=== PATIENT | male | born 1935 | race Caucasian/White ===

== ENCOUNTER 2017-07-29 09:16 | Inpatient (IN) | payer OTHER ==
--- NOTE | 2017-07-29 09:34 | PDOC ---
History of Present Illness - General Chief Complaint: Weakness Stated Complaint: WEAKNESS Time Seen by Provider: 07/29/17 09:23 History Source: Patient - History of Present Illness Initial Comments: 07/29/17 10:56 Patient is an 82 y.o. male with a PMH of HTN, DLD, PVD (h/o - RLE ulcer in 2014 ) who presents to our ED c/o 3 days of productive (whitish sputum) cough, subjective fever and sore throat. Patient denies any associated nausea/ vomiting as well as chest pain or dyspnea. Patient notes he is able to perform his ADL's however reports generalized malaise and decreased PO intake. NKDA Surgical: denies PMD: Dr. Yousif Mckeon Past History - Past Medical History Allergies/Adverse Reactions: Allergies Allergy/AdvReac Type Severity Reaction Status Date / Time No Known Allergies Allergy Verified 07/29/17 09:19 Home Medications: Ambulatory Orders Amlodipine Besylate [Norvasc -] 10 mg PO DAILY #0 tablet 11/19/11 Aspirin [Acetyl Salicylic Acid] 81 mg PO DAILY #0 tab.chew 11/19/11 Clopidogrel Bisulfate [Plavix -] 75 mg PO DAILY #0 tablet 11/19/11 Ferrous Sulfate [Feosol] 325 mg PO DAILY #0 ud 11/19/11 Folic Acid 1 mg PO DAILY #0 tablet 11/19/11 Multivitamins [Multivit ([facility] Formul[facility])] 1 each PO DAILY #0 tab 11/19/11 Atorvastatin Ca [Lipitor] 10 mg PO HS 07/29/17 Cetirizine HCl 10 mg PO 07/29/17 Docusate Sodium [Colace -] 200 mg PO DAILY 07/29/17 Famotidine [Pepcid] 20 mg PO DAILY 07/29/17 Cardiac Disorders: Yes HTN: Yes - Surgical History Cardiac Surgery: Yes (Bypass) Orthopedic Surgery: Yes (Right Knee, Arm & shoulder) - Immunization History Td Vaccination: No TDAP Vaccination: No Immunization Up to Date: No - Suicide/Smoking/Psychosocial Hx Smoking Status: Yes Smoking History: Current every day smoker Years of Tobacco Use: 63 Have you smoked in the past 12 months: Yes Number of Cigarettes Smoked Daily: 5 'Breaking Loose' booklet given: 11/10/11 Hx Alcohol Use: No Drug/Substance Use Hx: No Substance Use Type: None Hx Substance Use Treatment: No Review of Systems - Review of Systems Constitutional: Yes: Fever, Weakness. No: Chills, Unexplained wgt Loss Respiratory: Yes: Cough, Shortness of Breath Cardiac (ROS): No: Chest Pain ABD/GI: Yes: Poor Appetite. No: Constipated, Diarrhea, Nausea, Vomiting, Abdominal cramping : No: Burning, Dysuria *Physical Exam - Physical Exam General Appearance: Yes: Nourished, Appropriately Dressed HEENT: positive: Tonsillar Exudate. negative: TM Bulging, TM Dull, TM Erythema Neck: positive: Supple Respiratory/Chest: positive: Lungs Clear Cardiovascular: positive: S1, S2 Gastrointestinal/Abdominal: positive: Normal Bowel Sounds, Soft Musculoskeletal: negative: CVA Tenderness (R), CVA Tenderness (L) Extremity: positive: Normal Capillary Refill, Normal Inspection Integumentary: positive: Normal Color, Dry, Warm Neurologic: positive: Fully Oriented, Alert ED Treatment Course - LABORATORY CBC & Chemistry Diagram: 07/30/17 08:00 07/30/17 12:07 Medical Decision Making - Medical Decision Making 07/29/17 12:23 Patient is an 82 y.o. male who presents with malaise, productive cough and subjective fever of three days duration. As patient is hypoxic will initiate adult sepsis protocol. Initial clinical suspicion for strep pharyngitis ( exudates on PE) vs. pneumonia vs. influenza. Tylenol for pain control + gentle hydration. Reassess. 07/29/17 12:41 CXR shows no infiltrate/consolidation some possible pulmonary vascular congestion. Na 121 - may account for patient's generalized malaise. Leukocytosis (14.9). Will admit for electrolyte derangement and hold PO and IV fluids. Patient resting comfortably. Admitted to inpatient medicine under the care of Dr. Terry. Will continue to monitor while in ED. *DC/Admit/Observation/Transfer Diagnosis at time of Disposition: Hyponatremia - Discharge Dispostion Condition at time of disposition: Fair Admit: Yes - Referrals - Patient Instructions - Post Discharge Activity
[2017-07-29 10:15] LABS: HEMATOCRIT 41.1 % (35.4-49); HEMOGLOBIN 13.8 GM/dL (11.7-16.9); MCHC 33.5 g/dl (32.0-35.9); MEAN CELL VOLUME 89.5 fl (80-96); RBC 4.59 M/mm3 (4.00-5.60); RDW 13.1 % (11.9-15.9); WHITE BLOOD COUNT 14.9 K/mm3 (4.0-10.0)
[2017-07-29 10:30] LABS: ALBUMIN 2.3 g/dl (3.4-5.0); ANION GAP 11 (8-16); BILIRUBIN,TOTAL 0.4 mg/dL (0.2-1.0); BLOOD UREA NITROGEN 16 mg/dL (7-18); CALCIUM 7.5 mg/dL (8.5-10.1); CHLORIDE 83 mmol/L (98-107); CO2 27 mmol/L (21-32); CREATININE 0.7 mg/dL (0.7-1.3); GLUCOSE,RANDOM 103 mg/dL (74-106); POTASSIUM 4.1 mmol/L (3.5-5.1); SGOT/AST 25 U/L (15-37); SGPT/ALT 28 U/L (12-78); TOT PROT 5.7 g/dl (6.4-8.2)
[2017-07-29 10:33] LABS: ALK PHOS 80 U/L (45-117)
[2017-07-29] MEDS ORDERED: SODIUM CHLORIDE 0.9% 1000 ML INFUS.BAG IV ONE (10:35)
[2017-07-29 10:36] LABS: SODIUM 121 mmol/L (136-145)
--- NOTE | 2017-07-29 10:45 | PDOC ---
Attending Attestation - HPI HPI: 07/29/17 11:27 The patient is a 82 year old male with a significant PMH of hyperlipidemia and hypertension who presents to the emergency department with generalized malaise, body aches, cough and sore throat that began approximately 5 day ago. The patient states he has been unable to get up and ambulate secondary to his generalized malaise. The patient reports a heavy sensation in his chest and a cough productive of white sputum. The patient states he lives at home alone. The patient denies any sick contact. The patient denies chest pain, shortness of breath, headache and dizziness. Denies fever, chills, nausea, vomit, diarrhea and constipation. Denies dysuria, frequency, urgency and hematuria. Allergies: NKA Past surgical history: None reported. Social history: Former smoker. No reported alcohol or drug use. PCP: Dr. Mckeon - Physicial Exam PE: 07/29/17 11:27 GENERAL: (+) Generalized malaise. Awake, alert, and fully oriented. HEAD: No signs of trauma EYES: PERRLA, EOMI, sclera anicteric, conjunctiva clear ENT: (+) Dry mucous membranes. Auricles normal inspection, hearing grossly normal, nares patent, oropharynx clear without exudates. NECK: Normal ROM, supple, no lymphadenopathy, JVD, or masses LUNGS: Breath sounds equal, clear to auscultation bilaterally. No wheezes, and no crackles HEART: Regular rate and rhythm, normal S1 and S2, no murmurs, rubs or gallops ABDOMEN: Soft, nontender, normoactive bowel sounds. No guarding, no rebound. No masses EXTREMITIES: Normal range of motion, no edema. No clubbing or cyanosis. No cords, erythema, or tenderness NEUROLOGICAL: Cranial nerves II through XII grossly intact. Normal speech, normal gait SKIN: Warm, Dry, normal turgor, no rashes or lesions noted. <Noelle Lynn - Last Filed: 07/29/17 11:27> - Resident Resident Name: Catrachita Degroot - ED Attending Attestation I have performed the following: I have examined & evaluated the patient, The case was reviewed & discussed with the resident, I agree w/resident's findings & plan, Exceptions are as noted - Medical Decision Making 07/29/17 10:43 A portion of this note was written by my scribe, under my supervision. Vital Signs Temp Pulse Resp BP Pulse Ox 98.6 F 71 18 178/76 95 07/29/17 09:16 07/29/17 09:16 07/29/17 09:16 07/29/17 09:16 07/29/17 10:12 82-year-old male with history of hypertension, hyperlipidemia, peripheral vascular disease presents with 5 days of general malaise, body aches, cough and sore throat. Patient reports that he's been feeling general malaise and really not able to get up and walk around. He's been reporting some chest heavy sensation and offing with whitish productive sputum. Adult sepsis protocol initiated. Differential includes influenza, pneumonia, pharyngitis, bacteremia. Patient is noted to be hypoxic to 92% concerning for potentially pneumonia. Patient ultimately be admitted to the hospital for further evaluation and management. 07/29/17 11:10 CBC, BMP 07/29/17 09:55 CMP Sodium 121 mmol/L (136-145) L* D 07/29/17 09:55 Potassium 4.1 mmol/L (3.5-5.1) 07/29/17 09:55 Chloride 83 mmol/L (98-107) L D 07/29/17 09:55 Carbon Dioxide 27 mmol/L (21-32) 07/29/17 09:55 Anion Gap 11 (8-16) 07/29/17 09:55 BUN 16 mg/dL (7-18) 07/29/17 09:55 Creatinine 0.7 mg/dL (0.7-1.3) 07/29/17 09:55 Creat Clearance w eGFR > 60 (>60) 07/29/17 09:55 Random Glucose 103 mg/dL (74-106) D 07/29/17 09:55 Calcium 7.5 mg/dL (8.5-10.1) L 07/29/17 09:55 Total Bilirubin 0.4 mg/dL (0.2-1.0) 07/29/17 09:55 AST 25 U/L (15-37) D 07/29/17 09:55 ALT 28 U/L (12-78) D 07/29/17 09:55 Alkaline Phosphatase 80 U/L (45-117) D 07/29/17 09:55 Troponin I 0.02 ng/ml (0.00-0.05) 07/29/17 09:55 Total Protein 5.7 g/dl (6.4-8.2) L 07/29/17 09:55 Albumin 2.3 g/dl (3.4-5.0) L D 07/29/17 09:55 Chest xray reviewed. No acute findings. Influenza and Rapid strep negative. However, pt clinically appears to have PNA. Will treat with antibiotics And also with hyponatremia. Will trial gentle IVF and reassess. Admit. <Minh Cates - Last Filed: 07/29/17 12:40> Heart Score/ECG Review #1 ECG reviewed & interpreted by me at: 12:40 07/29/17 12:39 NSR 71, no std/, morales, left axis deviation, QTC 460 msec. <Minh Cates - Last Filed: 07/29/17 12:40>
[2017-07-29] MEDS ORDERED: CEFTRIAXONE 1 GM in DEXTROSE 5%-WATER - 50 ML IVPB ONE (10:54)
[2017-07-29] MEDS ORDERED: CEFTRIAXONE 1 GM/50 ML BAG ONE (10:58)
[2017-07-29 10:59] LABS: VENOUS PH 7.4 (7.32-7.42); VENOUS PO2 29.5 mmHg (28-48)
[2017-07-29 11:16] LABS: INR 0.93 (0.82-1.09); PROTHROMBIN TIME (PATIENT) 10.5 SEC (9.98-11.88)
[2017-07-29 11:17] LABS: ALBUMIN 2.2 g/dl (3.4-5.0); ANION GAP 9 (8-16); BILIRUBIN,TOTAL 0.4 mg/dL (0.2-1.0); BLOOD UREA NITROGEN 16 mg/dL (7-18); CALCIUM 7.4 mg/dL (8.5-10.1); CHLORIDE 85 mmol/L (98-107); CO2 27 mmol/L (21-32); CREATININE 0.6 mg/dL (0.7-1.3); GLUCOSE,RANDOM 101 mg/dL (74-106); POTASSIUM 4.1 mmol/L (3.5-5.1); SGOT/AST 23 U/L (15-37); SGPT/ALT 27 U/L (12-78); TOT PROT 5.4 g/dl (6.4-8.2)
[2017-07-29 11:18] LABS: ALK PHOS 79 U/L (45-117)
[2017-07-29 11:19] LABS: ACTIVATED PTT 32.6 SECONDS (26.9-34.4); SODIUM 121 mmol/L (136-145)
--- NOTE | 2017-07-29 12:20 | CONSULT ---
Consult Consult Specialty:: Nephrology Referred by:: Dr. Cates Reason for Consultation:: Severe Hyponatremia - History of Present Illness Chief Complaint: I dont feel good History of Present Illness: 82M PMH of hyperlipidemia and hypertension who presents to the emergency department with about a 1 week history of generalized malaise, body aches, cough and sore throat.The patient states he has been having a cough with white sputum production. The patient denies any sick contact. In the ED Lab notable for severe hyponatremia sodium is 121. The patient denies chest pain, shortness of breath, headache and dizziness. Denies fever, chills, nausea, vomit, diarrhea and constipation. Denies dysuria, frequency, urgency and hematuria. He does endorse some chest heaviness. - History Source History Provided By: Patient, Medical Record Limitations to Obtaining History: Clinical Condition - Past Medical History Cardio/Vascular: Yes: HTN, Hyperlipdemia Gastrointestinal: Yes: GERD Heme/Onc: Yes: Anemia Additional Medical History: periheral vascular disease - Past Surgical History Additional Surgical History: RLE bypass. Orthopedic surgeries - Alcohol/Substance Use Hx Alcohol Use: No - Smoking History Smoking history: Former smoker Have you smoked in the past 12 months: Yes Aproximately how many cigarettes per day: 5 If you are a former smoker, when did you quit?: 07/2017 Home Medications - Allergies Allergies/Adverse Reactions: Allergies Allergy/AdvReac Type Severity Reaction Status Date / Time No Known Allergies Allergy Verified 07/29/17 09:19 - Home Medications Home Medications: Ambulatory Orders Amlodipine Besylate [Norvasc -] 10 mg PO DAILY #0 tablet 11/19/11 Aspirin [Acetyl Salicylic Acid] 81 mg PO DAILY #0 tab.chew 11/19/11 Clopidogrel Bisulfate [Plavix -] 75 mg PO DAILY #0 tablet 11/19/11 Ferrous Sulfate [Feosol] 325 mg PO DAILY #0 ud 11/19/11 Folic Acid 1 mg PO DAILY #0 tablet 11/19/11 Multivitamins [Multivit ([facility] Formul[facility])] 1 each PO DAILY #0 tab 11/19/11 Atorvastatin Ca [Lipitor] 10 mg PO HS 07/29/17 Cetirizine HCl 10 mg PO 07/29/17 Docusate Sodium [Colace -] 200 mg PO DAILY 07/29/17 Famotidine [Pepcid] 20 mg PO DAILY 07/29/17 Review of Systems - Review of Systems Constitutional: reports: Loss of Appetite, Malaise, Weakness Eyes: reports: No Symptoms HENT: reports: No Symptoms Neck: reports: No Symptoms Cardiovascular: reports: Other (chesdt heaviness) Respiratory: reports: Cough (productive) Gastrointestinal: reports: Other (suprapubic pain) Breasts: reports: No Symptoms Reported Musculoskeletal: reports: No Symptoms Integumentary: reports: No Symptoms Neurological: reports: Weakness Physical Exam Vital Signs: Vital Signs Temperature 98.6 F 07/29/17 09:16 Pulse Rate 71 07/29/17 09:16 Respiratory Rate 18 07/29/17 09:16 Blood Pressure 178/76 07/29/17 09:16 O2 Sat by Pulse Oximetry (%) 95 07/29/17 10:12 Constitutional: Yes: No Distress, Calm Eyes: Yes: Conjunctiva Clear HENT: Yes: Atraumatic, Other (dry mucous membranes) Neck: Yes: Supple Cardiovascular: Yes: Regular Rate and Rhythm Respiratory: Yes: CTA Bilaterally Gastrointestinal: Yes: WNL, Soft Renal/: Yes: Other (mild suprapubic tenderness) Edema: No Neurological: Yes: Alert Labs: CBC, BMP 07/29/17 09:55 07/29/17 10:25 Imaging - Results Chest X-ray: Report Reviewed, Image Reviewed Assessment/Plan 82M with multiple medical problems presents to the ED with general malaise and weakness found to have severe hyponatremia on labs. Problem List: Severe symptomatic hyponatremia Leukocytosis HTN HLD PVD GERD Iron deficiency anemia possible pneumonia Plan: Admit to medicine given 500ml NS Bolus Repeat BMP now check TSH Check urine OSM Check serum OSM Check urine electrolytes check urine creatinine check cortisol AM Check Urinalysis Will start fluids based on labs check urine antigens for legionella given hyponatremia Trend BMP q4h discussed with hospitalist discussed with ED resident and attending Case discussed with attending Dr Lacey
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
[2017-07-29] MEDS ORDERED: amLODIPine BESYLATE 5 MG TABLET (FP) ONE (13:03)
[2017-07-29] MEDS: amLODIPine BESYLATE 10 MG TABLET (FP) PO SCH (13:06)
[2017-07-29 13:35] LABS: ALBUMIN 2.1 g/dl (3.4-5.0); ANION GAP 10 (8-16); BILIRUBIN,TOTAL 0.3 mg/dL (0.2-1.0); BLOOD UREA NITROGEN 16 mg/dL (7-18); CALCIUM 7.3 mg/dL (8.5-10.1); CHLORIDE 84 mmol/L (98-107); CO2 27 mmol/L (21-32); CREATININE 0.6 mg/dL (0.7-1.3); GLUCOSE,RANDOM 97 mg/dL (74-106); SGOT/AST 21 U/L (15-37); SGPT/ALT 25 U/L (12-78); TOT PROT 5.1 g/dl (6.4-8.2)
[2017-07-29 13:43] LABS: ALK PHOS 73 U/L (45-117)
[2017-07-29 13:44] LABS: SODIUM 121 mmol/L (136-145)
[2017-07-29 14:55] LABS: ANISOCYTOSIS 0; MACROCYTOSIS 0; PLATELET ESTIMATE INCREASED
--- NOTE | 2017-07-29 14:58 | EKG ---
Test Reason : Blood Pressure : / mmHG Vent. Rate : 071 BPM Atrial Rate : 071 BPM P-R Int : 168 ms QRS Dur : 110 ms QT Int : 424 ms P-R-T Axes : -05 -22 031 degrees QTc Int : 460 ms NORMAL SINUS RHYTHM NORMAL ECG WHEN COMPARED WITH ECG OF 10-NOV-2011 10:42, QRS DURATION HAS INCREASED NONSPECIFIC T WAVE ABNORMALITY NOW EVIDENT IN LATERAL LEADS QT HAS LENGTHENED Confirmed by NICK MACIEL, [place] ([id number]) on 07/29/2017 2:58:00 PM Referred By: Confirmed By:MO ROMERO MD
[2017-07-29 15:09] LABS: OSMOLALITY,SERUM 250 mosm/kg (278-305)
[2017-07-29 15:23] LABS: PLATELET COUNT 539 K/MM3 (134-434)
[2017-07-29 15:59] VITALS: BMI 23.6
--- NOTE | 2017-07-29 16:06 | PN ---
Teaching Attending Note Name of Resident: Uzair Wallace (Nephrology) ATTENDING PHYSICIAN STATEMENT I saw and evaluated the patient. I reviewed the resident's note and discussed the case with the resident. I agree with the resident's findings and plan as documented. Nephrology Pt is an 82 year old male with pmhx of HTN, PVC, arthritis, anemia and CAD who presents to the ER with cough and weakness. He says that it began about 5 days ago. He also complains of decreased appetite. He has not eaten solid food in about 5 days. He has tried to drink fluids but has not had appetite. He denies diarrhea or vomiting. He was found to be hyponatremic at 121. He denies history of hyponatremia. He lived in [facility]. He complains of generalized fatigue and weakness. He denies chest pain or palpitations. He denies change in vision. pmhx cad htn pvc arthritis pshx ulcer debridement nkda social hx denies family hx denies ros fatigue Current Active Problems Anemia (Acute) CAD (coronary artery disease) (Acute) Decrease in appetite (Acute) HLD (hyperlipidemia) (Acute) HTN (hypertension) (Acute) Hyponatremia (Acute) Leukocytosis (Acute) SOB (shortness of breath) (Acute) Weakness (Acute) Current Medications Generic Name Dose Route Start Last Admin Trade Name Freq PRN Reason Stop Dose Admin Amlodipine Besylate 10 mg 07/29/17 12:30 07/29/17 13:06 Norvasc - PO 10 mg DAILY NARINDER Administration Atorvastatin Calcium 10 mg 07/29/17 22:00 Lipitor - PO HS NARINDER Clopidogrel Bisulfate 75 mg 07/30/17 10:00 Plavix - PO DAILY NARINDER Enoxaparin Sodium 40 mg 07/30/17 10:00 Lovenox - SQ DAILY NARINDER Sodium Chloride 1,000 mls @ 100 mls/hr 07/29/17 14:00 Normal Saline - IV ASDIR NARINDER Last Vital Signs Temp Pulse Resp BP Pulse Ox 97.8 F 73 18 167/57 96 07/29/17 12:18 07/29/17 13:56 07/29/17 13:56 07/29/17 13:56 07/29/17 13:56 Laboratory Tests 07/29/17 07/29/17 07/29/17 09:55 09:55 10:25 WBC 14.9 H D Hgb 13.8 D Plt Count 539 H D VBG pH POC VBG pCO2 POC VBG pO2 Sodium 121 L* D 121 L* BUN 16 Creatinine 0.7 Serum Osmolality 07/29/17 07/29/17 10:50 12:55 WBC Hgb Plt Count VBG pH 7.40 POC VBG pCO2 48.0 POC VBG pO2 29.5 Sodium BUN Creatinine Serum Osmolality 250 L cardio s1s2 reg pulm scattered wheeze GI soft ext neg edema neuro awake and alert skin decreased turgor circ pos pulses heent dry mucous membranes psych calm and cooperative Impression 1. hyponatremia - hypovolemic 2. Leukocytosis 3. HTN 4. HLD 5. PVD 6. GERD 7. anemia 8. pna vs influenza Plan - start normal saline and monitor sodium - repeat levels in 4 hours - check urine osm - check urine sodium - send tsh and cortisol - pt appears clinically dehydrated as well - discussed with ER team - discussed with medical team at bedside - pt is at risk to fall, keep on bedrest until sodium is stabilized
[2017-07-29 19:39] LABS: URINE APPEARANCE CLEAR; URINE BILIRUBIN NEGATIVE (NEGATIVE); URINE BLOOD 2+ (NEGATIVE); URINE COLOR YELLOW; URINE GLUCOSE (UA) NEGATIVE (NEGATIVE); URINE KETONE TRACE (NEGATIVE); URINE LEUK ESTERASE NEGATIVE (NEGATIVE); URINE NITRITE NEGATIVE (NEGATIVE); URINE UROBILINOGEN 4.0 E.U/dl mg/dL (0.2-1.0)
[2017-07-29 19:40] LABS: URINE PROTEIN 3+ (NEGATIVE)
[2017-07-29 19:44] LABS: EPI CELLS RARE /HPF (FEW); URINE MUCUS RARE
[2017-07-29 21:18] LABS: ANION GAP 8 (8-16); BLOOD UREA NITROGEN 13 mg/dL (7-18); CALCIUM 7.2 mg/dL (8.5-10.1); CHLORIDE 88 mmol/L (98-107); CO2 27 mmol/L (21-32); CREATININE 0.5 mg/dL (0.7-1.3); GLUCOSE,RANDOM 72 mg/dL (74-106); POTASSIUM 4.1 mmol/L (3.5-5.1)
[2017-07-29 21:25] LABS: SODIUM 123 mmol/L (136-145)
[2017-07-29] MEDS: ATORVASTATIN CA 10 MG TABLET (FP) PO SCH (21:42)
[2017-07-30] MEDS: SODIUM CHLORIDE 1,000 ML IV SCH (02:28)
[2017-07-30 08:45] LABS: BASO % 0.3 % (0-2.0); EOS % 0.5 % (0-4.5); HEMATOCRIT 38.7 % (35.4-49); HEMOGLOBIN 13.1 GM/dL (11.7-16.9); LYMPH % 10.3 % (8-40); MCH 30.5 pg (25.7-33.7); MEAN CELL VOLUME 89.9 fl (80-96); MEAN PLT VOLUME 6.7 fl (7.5-11.1); MONO % 7.7 % (3.8-10.2); NEUT % 81.2 % (42.8-82.8); PLATELET COUNT 456 K/MM3 (134-434); WHITE BLOOD COUNT 13.1 K/mm3 (4.0-10.0)
[2017-07-30 09:29] LABS: MAGNESIUM 1.9 mg/dL (1.8-2.4); PHOSPHOROUS 2.5 mg/dL (2.5-4.9)
[2017-07-30] MEDS: amLODIPine BESYLATE 10 MG TABLET (FP) PO SCH (09:39)
[2017-07-30] MEDS: CLOPIDOGREL BISULFATE 75 MG TABLET (FP) PO SCH (09:39)
[2017-07-30] MEDS: ENOXAPARIN NA (PORCINE) 40 MG/0.4 ML DISP.SYRIN SQ SCH (09:39)
[2017-07-30] MEDS: CEFTRIAXONE 1 G/50 ML PREMIX 50 ML IVPB SCH (09:39)
--- NOTE | 2017-07-30 11:51 | PN ---
Progress Note, Physician History of Present Illness: patient seen and examined at bedside urine osm not done - Current Medication List Current Medications: Active Medications Amlodipine Besylate (Norvasc -) 10 mg PO DAILY [facility] Last Admin: 07/30/17 09:39 Dose: 10 mg Atorvastatin Calcium (Lipitor -) 10 mg PO HS [facility] Last Admin: 07/29/17 21:42 Dose: 10 mg Clopidogrel Bisulfate (Plavix -) 75 mg PO DAILY [facility] Last Admin: 07/30/17 09:39 Dose: 75 mg Enoxaparin Sodium (Lovenox -) 40 mg SQ DAILY [facility] Last Admin: 07/30/17 09:39 Dose: 40 mg Sodium Chloride (Normal Saline -) 1,000 mls @ 100 mls/hr IV ASDIR [facility] Last Admin: 07/30/17 02:28 Dose: 100 mls/hr CEFTRIAXONE 1 G/50 ML PREMIX (Ceftriaxone 1 Gm-D5w Bag) 50 mls @ 100 mls/hr IVPB DAILY [facility] Last Admin: 07/30/17 09:39 Dose: 100 mls/hr - Objective Vital Signs: Vital Signs Temperature 98.1 F 07/30/17 09:43 Pulse Rate 77 07/30/17 09:43 Respiratory Rate 20 07/30/17 09:43 Blood Pressure 156/68 07/30/17 09:43 O2 Sat by Pulse Oximetry (%) 96 07/29/17 21:00 Constitutional: Yes: No Distress, Calm Eyes: Yes: Conjunctiva Clear HENT: Yes: Atraumatic, Other (dry mucous membranes) Neck: Yes: Supple Cardiovascular: Yes: Regular Rate and Rhythm Respiratory: Yes: CTA Bilaterally Gastrointestinal: Yes: WNL, Soft Renal/: Yes: Soft non tender non distended Edema: No Neurological: Yes: AAOx3 Labs: CBC, BMP 07/30/17 08:00 07/29/17 20:00 INR, PTT INR 0.93 (0.82-1.09) 07/29/17 10:25 Assessment/Plan 82M with multiple medical problems presents to the ED with general malaise and weakness found to have severe hyponatremia on labs. Problem List: Severe symptomatic hyponatremia Leukocytosis HTN HLD PVD GERD Iron deficiency anemia possible pneumonia Plan: continue to trend BMP TSH WNL Check urine OSM serum OSM Low urine electrolytes reviewed check urine creatinine cortisol AM -pending Urinalysis reviewed continue NS @ 100ml/hr check urine antigens for legionella given hyponatremia Trend BMP q4h Case discussed with attending Dr Lacey
[2017-07-30 12:56] LABS: ALBUMIN 1.7 g/dl (3.4-5.0); ANION GAP 10 (8-16); BILIRUBIN,TOTAL 0.2 mg/dL (0.2-1.0); BLOOD UREA NITROGEN 13 mg/dL (7-18); CALCIUM 7.1 mg/dL (8.5-10.1); CHLORIDE 91 mmol/L (98-107); CO2 25 mmol/L (21-32); CREATININE 0.5 mg/dL (0.7-1.3); GLUCOSE,RANDOM 80 mg/dL (74-106); POTASSIUM 3.9 mmol/L (3.5-5.1); SGOT/AST 21 U/L (15-37); SGPT/ALT 22 U/L (12-78); SODIUM 126 mmol/L (136-145); TOT PROT 4.6 g/dl (6.4-8.2)
[2017-07-30 12:57] LABS: ALK PHOS 72 U/L (45-117)
--- NOTE | 2017-07-30 15:46 | PN ---
Progress Note (short form) - Note Progress Note: Subjective: The patient was seen and examined at the bedside, he has no complaints at this time. Current Medications Generic Name Dose Route Start Last Admin Trade Name Bailey PRN Reason Stop Dose Admin Amlodipine Besylate 10 mg 07/29/17 12:30 07/30/17 09:39 Norvasc - PO 10 mg DAILY NARINDER Administration Atorvastatin Calcium 10 mg 07/29/17 22:00 07/29/17 21:42 Lipitor - PO 10 mg HS NARINDER Administration Clopidogrel Bisulfate 75 mg 07/30/17 10:00 07/30/17 09:39 Plavix - PO 75 mg DAILY NARINDER Administration Enoxaparin Sodium 40 mg 07/30/17 10:00 07/30/17 09:39 Lovenox - SQ 40 mg DAILY NARINDER Administration Sodium Chloride 1,000 mls @ 100 mls/hr 07/29/17 14:00 07/30/17 02:28 Normal Saline - IV 100 mls/hr ASDIR NARINDER Administration CEFTRIAXONE 1 G/50 ML PREMIX 50 mls @ 100 mls/hr 07/30/17 10:00 07/30/17 09: 39 Ceftriaxone 1 Gm-D5w Bag IVPB 100 mls/hr DAILY NARINDER Administration Objective: Vital Signs Period Temp Pulse Resp BP Sys/Macias Pulse Ox Last 24 Hr 98.1 F-98.9 F 72-90 18-20 136-156/61-68 96-96 Physical Exam: General: NAD Lungs: CTA bilaterally Heart: RRR, S1S2 Abd: Soft, non-tender, non-distended. Normoactive bowel sounds Ext: Warm, well-perfused. 2+ DP/PT bilaterally CBCD WBC 13.1 K/mm3 (4.0-10.0) H 07/30/17 08:00 RBC 4.30 M/mm3 (4.00-5.60) 07/30/17 08:00 Hgb 13.1 GM/dL (11.7-16.9) 07/30/17 08:00 Hct 38.7 % (35.4-49) 07/30/17 08:00 MCV 89.9 fl (80-96) 07/30/17 08:00 MCHC 34.0 g/dl (32.0-35.9) 07/30/17 08:00 RDW 13.0 % (11.9-15.9) 07/30/17 08:00 Plt Count 456 K/MM3 (134-434) H 07/30/17 08:00 MPV 6.7 fl (7.5-11.1) L 07/30/17 08:00 CMP Sodium 126 mmol/L (136-145) L 07/30/17 12:07 Potassium 3.9 mmol/L (3.5-5.1) 07/30/17 12:07 Chloride 91 mmol/L (98-107) L 07/30/17 12:07 Carbon Dioxide 25 mmol/L (21-32) 07/30/17 12:07 Anion Gap 10 (8-16) 07/30/17 12:07 BUN 13 mg/dL (7-18) 07/30/17 12:07 Creatinine 0.5 mg/dL (0.7-1.3) L 07/30/17 12:07 Creat Clearance w eGFR > 60 (>60) 07/30/17 12:07 Random Glucose 80 mg/dL (74-106) 07/30/17 12:07 Calcium 7.1 mg/dL (8.5-10.1) L 07/30/17 12:07 Total Bilirubin 0.2 mg/dL (0.2-1.0) D 07/30/17 12:07 AST 21 U/L (15-37) 07/30/17 12:07 ALT 22 U/L (12-78) 07/30/17 12:07 Alkaline Phosphatase 72 U/L (45-117) 07/30/17 12:07 Total Protein 4.6 g/dl (6.4-8.2) L 07/30/17 12:07 Albumin 1.7 g/dl (3.4-5.0) L 07/30/17 12:07 CARDIAC ENZYMES Troponin I 0.02 ng/ml (0.00-0.05) 07/29/17 09:55 Microbiology 07/29/17 10:25 Blood - Peripheral Venous Blood Culture - Preliminary NO GROWTH OBTAINED AFTER 24 HOURS, INCUBATION TO CONTINUE FOR 4 DAYS. 07/29/17 10:25 Blood - Peripheral Venous Blood Culture - Preliminary NO GROWTH OBTAINED AFTER 24 HOURS, INCUBATION TO CONTINUE FOR 4 DAYS. 07/29/17 10:12 Throat Throat Culture - Final NO BETA HEMOLYTIC STREPTOCOCCI ISOLATED 07/29/17 10:12 Throat Group A Strep Rapid Antigen - Final 07/29/17 10:12 Nasopharyngeal Swab Influenza Types A,B Antigen (KAREEN) - Final 07/29/17 10:12 Nasopharyngeal Swab - Final Assessment: This is an 82 year old male with PMHx of HTN, hyperlipidemia, anemia , CAD, who presented to the ED with shortness of breath, weakness, cough, decreased appetite x5 days. Plan: 1) Severe hyponatremia: - Likely hypovolemia hyponatremia - BMP q4h - Continue Normal Saline @100ml/hr - Urine studies noted - Appreciate nephrology consult 2) Leukocytosis - Improving - Continue Ceftriaxone/Azithromycin for now - F/u urine legionella Ag - Chest X-ray with no acute pathology - Influenza A&B negative - Throat culture negative 3) CAD - Continue Plavix - Continue Lipitor 4) HTN - Continue Norvasc 5) F/E/N: - Sodium controlled diet - Monitor electrolytes 6) Prophylaxis: - OOB ambulating - Lovenox 40mg sq daily 7) Dispo: - Requires continued inpatient care CODE STATUS: FULL CODE Visit type - Emergency Visit Emergency Visit: Yes ED Registration Date: 07/29/17 Care time: The patient presented to the Emergency Department on the above date and was hospitalized for further evaluation of their emergent condition. - New Patient This patient is new to me today: Yes Date on this admission: 07/30/17 - Critical Care Critical Care patient: No
--- NOTE | 2017-07-30 16:43 | PN ---
Teaching Attending Note Name of Resident: Uzair Wallace (Nephrology) ATTENDING PHYSICIAN STATEMENT I saw and evaluated the patient. I reviewed the resident's note and discussed the case with the resident. I agree with the resident's findings and plan as documented. Nephrology Pt seen and examined at bedside. He is more awake and alert. He denies shortness of breath. He has better appetite today and tolerated lunch. Current Medications Generic Name Dose Route Start Last Admin Trade Name Freq PRN Reason Stop Dose Admin Amlodipine Besylate 10 mg 07/29/17 12:30 07/30/17 09:39 Norvasc - PO 10 mg DAILY NARINDER Administration Atorvastatin Calcium 10 mg 07/29/17 22:00 07/29/17 21:42 Lipitor - PO 10 mg HS NARINDER Administration Clopidogrel Bisulfate 75 mg 07/30/17 10:00 07/30/17 09:39 Plavix - PO 75 mg DAILY NARINDER Administration Enoxaparin Sodium 40 mg 07/30/17 10:00 07/30/17 09:39 Lovenox - SQ 40 mg DAILY NARINDER Administration Sodium Chloride 1,000 mls @ 100 mls/hr 07/29/17 14:00 07/30/17 02:28 Normal Saline - IV 100 mls/hr ASDIR NARINDER Administration CEFTRIAXONE 1 G/50 ML PREMIX 50 mls @ 100 mls/hr 07/30/17 10:00 07/30/17 09: 39 Ceftriaxone 1 Gm-D5w Bag IVPB 100 mls/hr DAILY NARINDER Administration Laboratory Tests 07/29/17 07/30/17 16:20 12:07 Sodium 126 L Potassium 3.9 Ur Random Sodium 32 cardio s1s2 reg pulm bilateral breath sounds GI soft ext neg edema neuro awake and alert skin decreased turgor circ pos pulses psych calm and cooperative Impression 1. hyponatremia - hypovolemic 2. Leukocytosis 3. HTN 4. HLD 5. PVD 6. GERD 7. anemia 8. pna vs influenza Plan - cont with saline - hypovolemic hyponatremia - improving - repeat labs in am - encourage PO intake - workup in progress - hyponatremia likely secondary to dehydration and decreased PO intake - note low urine sodium despite having received saline Dr Lacey
[2017-07-30] MEDS ORDERED: AZITHROMYCIN IVPB 500 MG in DEXTROSE 5%-WATER - 250 ML IVPB ONE (17:30)
[2017-07-30 20:50] LABS: ANION GAP 8 (8-16); BLOOD UREA NITROGEN 13 mg/dL (7-18); CALCIUM 7.2 mg/dL (8.5-10.1); CHLORIDE 92 mmol/L (98-107); CO2 26 mmol/L (21-32); CREATININE 0.6 mg/dL (0.7-1.3); GLUCOSE,RANDOM 154 mg/dL (74-106); POTASSIUM 3.9 mmol/L (3.5-5.1); SODIUM 126 mmol/L (136-145)
[2017-07-30] MEDS: ATORVASTATIN CA 10 MG TABLET (FP) PO SCH (21:20)
[2017-07-30 21:44] LABS: ANION GAP 7 (8-16); BLOOD UREA NITROGEN 13 mg/dL (7-18); CALCIUM 7.1 mg/dL (8.5-10.1); CHLORIDE 92 mmol/L (98-107); CO2 27 mmol/L (21-32); CREATININE 0.6 mg/dL (0.7-1.3); GLUCOSE,RANDOM 159 mg/dL (74-106); POTASSIUM 3.8 mmol/L (3.5-5.1); SODIUM 126 mmol/L (136-145)
[2017-07-31 01:27] LABS: ANION GAP 8 (8-16); BLOOD UREA NITROGEN 10 mg/dL (7-18); CHLORIDE 92 mmol/L (98-107); CO2 26 mmol/L (21-32); CREATININE 0.5 mg/dL (0.7-1.3); GLUCOSE,RANDOM 94 mg/dL (74-106); SODIUM 126 mmol/L (136-145)
[2017-07-31 01:30] LABS: POTASSIUM 3.9 mmol/L (3.5-5.1)
[2017-07-31 05:52] LABS: HEMATOCRIT 36.2 % (35.4-49); HEMOGLOBIN 12.3 GM/dL (11.7-16.9); MCH 30.6 pg (25.7-33.7); MEAN CELL VOLUME 90.1 fl (80-96); MEAN PLT VOLUME 6.8 fl (7.5-11.1); PLATELET COUNT 437 K/MM3 (134-434); RBC 4.02 M/mm3 (4.00-5.60); RDW 13.1 % (11.9-15.9); WHITE BLOOD COUNT 10.3 K/mm3 (4.0-10.0)
[2017-07-31 06:25] LABS: ANION GAP 7 (8-16); BLOOD UREA NITROGEN 9 mg/dL (7-18); CHLORIDE 93 mmol/L (98-107); CO2 27 mmol/L (21-32); CREATININE 0.5 mg/dL (0.7-1.3); GLUCOSE,RANDOM 93 mg/dL (74-106); POTASSIUM 3.8 mmol/L (3.5-5.1); SODIUM 127 mmol/L (136-145)
[2017-07-31 06:30] LABS: CALCIUM 6.9 mg/dL (8.5-10.1)
[2017-07-31] MEDS: CEFTRIAXONE 1 G/50 ML PREMIX 50 ML IVPB SCH (09:19)
[2017-07-31] MEDS: ENOXAPARIN NA (PORCINE) 40 MG/0.4 ML DISP.SYRIN SQ SCH (09:20)
[2017-07-31] MEDS: amLODIPine BESYLATE 10 MG TABLET (FP) PO SCH (09:20)
[2017-07-31] MEDS: CLOPIDOGREL BISULFATE 75 MG TABLET (FP) PO SCH (09:20)
--- NOTE | 2017-07-31 10:40 | PN ---
Progress Note (short form) - Note Progress Note: Subjective: The patient was seen and examined at the bedside, he has no complaints at this time. Current Medications Generic Name Dose Route Start Last Admin Trade Name Bailey PRN Reason Stop Dose Admin Amlodipine Besylate 10 mg 07/29/17 12:30 07/31/17 09:20 Norvasc - PO 10 mg DAILY NARINDER Administration Atorvastatin Calcium 10 mg 07/29/17 22:00 07/30/17 21:20 Lipitor - PO 10 mg HS NARINDER Administration Clopidogrel Bisulfate 75 mg 07/30/17 10:00 07/31/17 09:20 Plavix - PO 75 mg DAILY NARINDER Administration Enoxaparin Sodium 40 mg 07/30/17 10:00 07/31/17 09:20 Lovenox - SQ 40 mg DAILY NARINDER Administration Sodium Chloride 1,000 mls @ 100 mls/hr 07/29/17 14:00 07/30/17 02:28 Normal Saline - IV 100 mls/hr ASDIR NARINDER Administration CEFTRIAXONE 1 G/50 ML PREMIX 50 mls @ 100 mls/hr 07/30/17 10:00 07/31/17 09: 19 Ceftriaxone 1 Gm-D5w Bag IVPB 100 mls/hr DAILY NARINDER Administration Objective: Vital Signs Period Temp Pulse Resp BP Sys/Macias Pulse Ox Last 24 Hr 97.6 F-99.3 F 76-90 20-20 136-154/61-83 96 Physical Exam: General: NAD Lungs: CTA bilaterally Heart: RRR, S1S2 Abd: Soft, non-tender, non-distended. Normoactive bowel sounds Ext: Warm, well-perfused. 2+ DP/PT bilaterally CBCD WBC 10.3 K/mm3 (4.0-10.0) H 07/31/17 05:30 RBC 4.02 M/mm3 (4.00-5.60) 07/31/17 05:30 Hgb 12.3 GM/dL (11.7-16.9) 07/31/17 05:30 Hct 36.2 % (35.4-49) 07/31/17 05:30 MCV 90.1 fl (80-96) 07/31/17 05:30 MCHC 34.0 g/dl (32.0-35.9) 07/31/17 05:30 RDW 13.1 % (11.9-15.9) 07/31/17 05:30 Plt Count 437 K/MM3 (134-434) H 07/31/17 05:30 MPV 6.8 fl (7.5-11.1) L 07/31/17 05:30 CMP Sodium 127 mmol/L (136-145) L 07/31/17 05:30 Potassium 3.8 mmol/L (3.5-5.1) 07/31/17 05:30 Chloride 93 mmol/L (98-107) L 07/31/17 05:30 Carbon Dioxide 27 mmol/L (21-32) 07/31/17 05:30 Anion Gap 7 (8-16) L 07/31/17 05:30 BUN 9 mg/dL (7-18) 07/31/17 05:30 Creatinine 0.5 mg/dL (0.7-1.3) L 07/31/17 05:30 Creat Clearance w eGFR > 60 (>60) 07/30/17 12:07 Random Glucose 93 mg/dL (74-106) 07/31/17 05:30 Calcium 6.9 mg/dL (8.5-10.1) L* 07/31/17 05:30 Total Bilirubin 0.2 mg/dL (0.2-1.0) D 07/30/17 12:07 AST 21 U/L (15-37) 07/30/17 12:07 ALT 22 U/L (12-78) 07/30/17 12:07 Alkaline Phosphatase 72 U/L (45-117) 07/30/17 12:07 Total Protein 4.6 g/dl (6.4-8.2) L 07/30/17 12:07 Albumin 1.7 g/dl (3.4-5.0) L 07/30/17 12:07 CARDIAC ENZYMES Troponin I 0.02 ng/ml (0.00-0.05) 07/29/17 09:55 Microbiology 07/29/17 10:25 Blood - Peripheral Venous Blood Culture - Preliminary NO GROWTH OBTAINED AFTER 24 HOURS, INCUBATION TO CONTINUE FOR 4 DAYS. 07/29/17 10:25 Blood - Peripheral Venous Blood Culture - Preliminary NO GROWTH OBTAINED AFTER 24 HOURS, INCUBATION TO CONTINUE FOR 4 DAYS. 07/29/17 10:12 Throat Throat Culture - Final NO BETA HEMOLYTIC STREPTOCOCCI ISOLATED 07/29/17 10:12 Throat Group A Strep Rapid Antigen - Final 07/29/17 10:12 Nasopharyngeal Swab Influenza Types A,B Antigen (KAREEN) - Final 07/29/17 10:12 Nasopharyngeal Swab - Final Assessment: This is an 82 year old male with PMHx of HTN, hyperlipidemia, anemia , CAD, who presented to the ED with shortness of breath, weakness, cough, decreased appetite x5 days. Plan: 1) Severe hyponatremia: - Continues to improve - Likely hypovolemia hyponatremia - BMP q4h - Continue Normal Saline @100ml/hr - Urine studies noted - Appreciate nephrology consult 2) Leukocytosis - Improving - Continue Ceftriaxone/Azithromycin for now - F/u urine legionella Ag - Chest X-ray with no acute pathology - Influenza A&B negative - Throat culture negative 3) CAD - Continue Plavix - Continue Lipitor 4) HTN - Continue Norvasc 5) F/E/N: - Sodium controlled diet - Monitor electrolytes 6) Prophylaxis: - OOB ambulating - Lovenox 40mg sq daily 7) Dispo: - Requires continued inpatient care CODE STATUS: FULL CODE Visit type - Emergency Visit Emergency Visit: Yes ED Registration Date: 07/29/17 Care time: The patient presented to the Emergency Department on the above date and was hospitalized for further evaluation of their emergent condition. - New Patient This patient is new to me today: No - Critical Care Critical Care patient: No
[2017-07-31] MEDS: SODIUM CHLORIDE 1,000 ML IV SCH (12:12)
[2017-07-31 12:16] LABS: ALBUMIN 1.7 g/dl (3.4-5.0)
--- NOTE | 2017-07-31 12:56 | PN ---
Progress Note (short form) - Note Progress Note: RENAL Pt is awake and alert c/o nausea and inability to swallow solids since yesterday Last Vital Signs Temp Pulse Resp BP Pulse Ox 97.6 F 78 20 144/83 95 07/31/17 09:00 07/31/17 09:00 07/31/17 09:00 07/31/17 09:00 07/31/17 09:00 heent no masses lungs clear cvs s1s2 rr abd soft ext no edema neuro a+ox3 CBC, BMP 07/31/17 05:30 07/31/17 05:30 Current Medications Generic Name Dose Route Start Last Admin Trade Name Freq PRN Reason Stop Dose Admin Amlodipine Besylate 10 mg 07/29/17 12:30 07/31/17 09:20 Norvasc - PO 10 mg DAILY NARINDER Administration Atorvastatin Calcium 10 mg 07/29/17 22:00 07/30/17 21:20 Lipitor - PO 10 mg HS NARINDER Administration Clopidogrel Bisulfate 75 mg 07/30/17 10:00 07/31/17 09:20 Plavix - PO 75 mg DAILY NARINDER Administration Enoxaparin Sodium 40 mg 07/30/17 10:00 07/31/17 09:20 Lovenox - SQ 40 mg DAILY NARINDER Administration Sodium Chloride 1,000 mls @ 100 mls/hr 07/29/17 14:00 07/31/17 12:12 Normal Saline - IV 100 mls/hr ASDIR NARINDER Administration CEFTRIAXONE 1 G/50 ML PREMIX 50 mls @ 100 mls/hr 07/30/17 10:00 07/31/17 09: 19 Ceftriaxone 1 Gm-D5w Bag IVPB 100 mls/hr DAILY NARINDER Administration IMPRESSION hyponatremia has improved with fluids which would suggest a hypovolemic hyponatremia His current nausea may perpetuate hyponatremia Unclear as to why he cant swallow- needs further investigation PLAN replace k which can help raise sodium as well swallowing eval/ CT scan chest/neck, GI eval continue saline for now
[2017-07-31] MEDS: SODIUM CHLORIDE 0.9%/KCL 20 MEQ/1,000 ML INFUS.BAG IV SCH (13:58)
[2017-07-31 17:47] LABS: CHLORIDE 94 mmol/L (98-107); POTASSIUM 3.9 mmol/L (3.5-5.1); SODIUM 126 mmol/L (136-145)
[2017-07-31 18:35] LABS: ANION GAP 8 (8-16); BLOOD UREA NITROGEN 9 mg/dL (7-18); CO2 24 mmol/L (21-32); CREATININE 0.5 mg/dL (0.7-1.3); GLUCOSE,RANDOM 98 mg/dL (74-106)
[2017-07-31] MEDS: ATORVASTATIN CA 10 MG TABLET (FP) PO SCH (21:06)
[2017-08-01] MEDS: SODIUM CHLORIDE 0.9%/KCL 20 MEQ/1,000 ML INFUS.BAG IV SCH ×3 (01:00→14:38)
[2017-08-01 08:26] LABS: BASO % 0.2 % (0-2.0); EOS % 0.9 % (0-4.5); HEMATOCRIT 38.5 % (35.4-49); HEMOGLOBIN 12.7 GM/dL (11.7-16.9); LYMPH % 10.1 % (8-40); MCH 29.7 pg (25.7-33.7); MEAN PLT VOLUME 6.7 fl (7.5-11.1); MONO % 6.2 % (3.8-10.2); NEUT % 82.6 % (42.8-82.8); PLATELET COUNT 469 K/MM3 (134-434); RBC 4.28 M/mm3 (4.00-5.60); RDW 13.2 % (11.9-15.9); WHITE BLOOD COUNT 11.6 K/mm3 (4.0-10.0)
[2017-08-01 09:00] LABS: ALBUMIN 1.6 g/dl (3.4-5.0); ALK PHOS 71 U/L (45-117); ANION GAP 10 (8-16); BILIRUBIN,TOTAL 0.2 mg/dL (0.2-1.0); BLOOD UREA NITROGEN 10 mg/dL (7-18); CALCIUM 7.6 mg/dL (8.5-10.1); CHLORIDE 96 mmol/L (98-107); CO2 24 mmol/L (21-32); CREATININE 0.4 mg/dL (0.7-1.3); GLUCOSE,RANDOM 85 mg/dL (74-106); POTASSIUM 4.3 mmol/L (3.5-5.1); SGOT/AST 20 U/L (15-37); SGPT/ALT 21 U/L (12-78); SODIUM 130 mmol/L (136-145); TOT PROT 4.4 g/dl (6.4-8.2)
[2017-08-01] MEDS: CEFTRIAXONE 1 G/50 ML PREMIX 50 ML IVPB SCH (09:15)
[2017-08-01] MEDS: CLOPIDOGREL BISULFATE 75 MG TABLET (FP) PO SCH (09:16)
[2017-08-01] MEDS: amLODIPine BESYLATE 10 MG TABLET (FP) PO SCH (09:16)
[2017-08-01] MEDS: ENOXAPARIN NA (PORCINE) 40 MG/0.4 ML DISP.SYRIN SQ SCH (09:16)
--- NOTE | 2017-08-01 12:09 | PN ---
Progress Note (short form) - Note Progress Note: Subjective: The patient was seen and examined at the bedside, he states he is only able to swallow dysphagia pureed foods. He states it is "fairly new" Current Medications Generic Name Dose Route Start Last Admin Trade Name Bailey PRN Reason Stop Dose Admin Amlodipine Besylate 10 mg 07/29/17 12:30 08/01/17 09:16 Norvasc - PO 10 mg DAILY NARINDER Administration Atorvastatin Calcium 10 mg 07/29/17 22:00 07/31/17 21:06 Lipitor - PO 10 mg HS NARINDER Administration Clopidogrel Bisulfate 75 mg 07/30/17 10:00 08/01/17 09:16 Plavix - PO 75 mg DAILY NARINDER Administration Enoxaparin Sodium 40 mg 07/30/17 10:00 08/01/17 09:16 Lovenox - SQ 40 mg DAILY NARINDER Administration CEFTRIAXONE 1 G/50 ML PREMIX 50 mls @ 100 mls/hr 07/30/17 10:00 08/01/17 09: 15 Ceftriaxone 1 Gm-D5w Bag IVPB 100 mls/hr DAILY NARINDER Administration Potassium Chloride/Sodium Chloride 20 meq in 1,000 mls @ 100 mls/hr 07/31/17 13:15 08/01/17 11:28 Ns+20 Meq Kcl - IV 100 mls/hr ASDIR NARINDER Administration Objective: Vital Signs Period Temp Pulse Resp BP Sys/Macias Pulse Ox Last 24 Hr 97.7 F-98.5 F 76-83 20-20 149-192/67-77 96-97 Physical Exam: General: NAD Lungs: CTA bilaterally Heart: RRR, S1S2 Abd: Soft, non-tender, non-distended. Normoactive bowel sounds Ext: Warm, well-perfused. 2+ DP/PT bilaterally CBCD WBC 11.6 K/mm3 (4.0-10.0) H 08/01/17 07:15 RBC 4.28 M/mm3 (4.00-5.60) 08/01/17 07:15 Hgb 12.7 GM/dL (11.7-16.9) 08/01/17 07:15 Hct 38.5 % (35.4-49) 08/01/17 07:15 MCV 90.0 fl (80-96) 08/01/17 07:15 MCHC 33.0 g/dl (32.0-35.9) 08/01/17 07:15 RDW 13.2 % (11.9-15.9) 08/01/17 07:15 Plt Count 469 K/MM3 (134-434) H 08/01/17 07:15 MPV 6.7 fl (7.5-11.1) L 08/01/17 07:15 CMP Sodium 130 mmol/L (136-145) L 08/01/17 07:15 Potassium 4.3 mmol/L (3.5-5.1) 08/01/17 07:15 Chloride 96 mmol/L (98-107) L 08/01/17 07:15 Carbon Dioxide 24 mmol/L (21-32) 08/01/17 07:15 Anion Gap 10 (8-16) 08/01/17 07:15 BUN 10 mg/dL (7-18) 08/01/17 07:15 Creatinine 0.4 mg/dL (0.7-1.3) L 08/01/17 07:15 Creat Clearance w eGFR > 60 (>60) 08/01/17 07:15 Random Glucose 85 mg/dL (74-106) 08/01/17 07:15 Calcium 7.6 mg/dL (8.5-10.1) L 08/01/17 07:15 Total Bilirubin 0.2 mg/dL (0.2-1.0) 08/01/17 07:15 AST 20 U/L (15-37) 08/01/17 07:15 ALT 21 U/L (12-78) 08/01/17 07:15 Alkaline Phosphatase 71 U/L (45-117) 08/01/17 07:15 Total Protein 4.4 g/dl (6.4-8.2) L 08/01/17 07:15 Albumin 1.6 g/dl (3.4-5.0) L 08/01/17 07:15 CARDIAC ENZYMES Troponin I 0.02 ng/ml (0.00-0.05) 07/29/17 09:55 Microbiology 07/29/17 10:25 Blood - Peripheral Venous Blood Culture - Preliminary NO GROWTH OBTAINED AFTER 72 HOURS, INCUBATION TO CONTINUE FOR 2 DAYS. 07/29/17 10:25 Blood - Peripheral Venous Blood Culture - Preliminary NO GROWTH OBTAINED AFTER 72 HOURS, INCUBATION TO CONTINUE FOR 2 DAYS. 07/29/17 10:12 Throat Throat Culture - Final NO BETA HEMOLYTIC STREPTOCOCCI ISOLATED 07/29/17 10:12 Throat Group A Strep Rapid Antigen - Final 07/29/17 10:12 Nasopharyngeal Swab Influenza Types A,B Antigen (KAREEN) - Final 07/29/17 10:12 Nasopharyngeal Swab - Final Assessment: This is an 82 year old male with PMHx of HTN, hyperlipidemia, anemia , CAD, who presented to the ED with shortness of breath, weakness, cough, decreased appetite x5 days. Plan: 1) Severe hyponatremia: - Continues to improve, Na 130 today - Likely hypovolemia hyponatremia - Continue Normal Saline @100ml/hr - Urine studies noted - Appreciate nephrology consult 2) Leukocytosis - Slightly worse today - Viral vs. pneumonia - Continue Ceftriaxone/Azithromycin for now - Urine legionella Ag ordered, not collected - Chest X-ray with no acute pathology - Influenza A&B negative - Throat culture negative 3) CAD - Continue Plavix - Continue Lipitor 4) HTN - Continue Norvasc 5) F/E/N: - Patient reports he is only able to swallow dysphagia pureed, f/u swallow evaluation and barium esophagram - Monitor electrolytes 6) Prophylaxis: - OOB ambulating - Lovenox 40mg sq daily 7) Dispo: - Requires continued inpatient care CODE STATUS: FULL CODE Visit type - Emergency Visit Emergency Visit: Yes ED Registration Date: 07/29/17 Care time: The patient presented to the Emergency Department on the above date and was hospitalized for further evaluation of their emergent condition. - New Patient This patient is new to me today: No - Critical Care Critical Care patient: No
--- NOTE | 2017-08-01 13:15 | PN ---
Progress Note (short form) - Note Progress Note: RENAL Pt is awake and alert says he is better, eating some soft foods Last Vital Signs Temp Pulse Resp BP Pulse Ox 98.5 F 77 20 149/67 97 08/01/17 06:00 08/01/17 10:22 08/01/17 10:22 08/01/17 10:22 08/01/17 09:00 heent no masses lungs clear cvs s1s2 rr abd soft ext no edema neuro a+ox3 CBC, BMP 08/01/17 07:15 08/01/17 07:15 Current Medications Generic Name Dose Route Start Last Admin Trade Name Freq PRN Reason Stop Dose Admin Amlodipine Besylate 10 mg 07/29/17 12:30 08/01/17 09:16 Norvasc - PO 10 mg DAILY NARINDER Administration Atorvastatin Calcium 10 mg 07/29/17 22:00 07/31/17 21:06 Lipitor - PO 10 mg HS NARINDER Administration Clopidogrel Bisulfate 75 mg 07/30/17 10:00 08/01/17 09:16 Plavix - PO 75 mg DAILY NARINDER Administration Enoxaparin Sodium 40 mg 07/30/17 10:00 08/01/17 09:16 Lovenox - SQ 40 mg DAILY NARINDER Administration CEFTRIAXONE 1 G/50 ML PREMIX 50 mls @ 100 mls/hr 07/30/17 10:00 08/01/17 09: 15 Ceftriaxone 1 Gm-D5w Bag IVPB 100 mls/hr DAILY NARINDER Administration Potassium Chloride/Sodium Chloride 20 meq in 1,000 mls @ 100 mls/hr 07/31/17 13:15 08/01/17 11:28 Ns+20 Meq Kcl - IV 100 mls/hr ASDIR NARINDER Administration Azithromycin 250 mg/ Dextrose 250 mls @ 250 mls/hr 08/01/17 12:30 IVPB DAILY NARINDER IMPRESSION hyponatremia has improved with fluids which would suggest a hypovolemic hyponatremia BP better but was high before PLAN since he is eating will reduce ivf. Hopefully his bp will be easier to control this way evaluate swallowing though better MV
[2017-08-01] MEDS: AZITHROMYCIN IVPB 250 MG in DEXTROSE 5%-WATER - 250 ML IVPB SCH (15:37)
[2017-08-01] MEDS: ATORVASTATIN CA 10 MG TABLET (FP) PO SCH (21:15)
[2017-08-02] MEDS: SODIUM CHLORIDE 0.9%/KCL 20 MEQ/1,000 ML INFUS.BAG IV SCH ×2 (05:40→12:38)
[2017-08-02 08:15] LABS: HEMATOCRIT 39.6 % (35.4-49); HEMOGLOBIN 13.2 GM/dL (11.7-16.9); MCHC 33.3 g/dl (32.0-35.9); MEAN CELL VOLUME 89.9 fl (80-96); MEAN PLT VOLUME 6.8 fl (7.5-11.1); PLATELET COUNT 499 K/MM3 (134-434); RDW 13.5 % (11.9-15.9)
[2017-08-02 08:48] LABS: ANION GAP 9 (8-16); BLOOD UREA NITROGEN 7 mg/dL (7-18); CALCIUM 7.7 mg/dL (8.5-10.1); CHLORIDE 95 mmol/L (98-107); CO2 25 mmol/L (21-32); CREATININE 0.4 mg/dL (0.7-1.3); GLUCOSE,RANDOM 90 mg/dL (74-106); POTASSIUM 4.5 mmol/L (3.5-5.1); SODIUM 129 mmol/L (136-145)
[2017-08-02] MEDS: CEFTRIAXONE 1 G/50 ML PREMIX 50 ML IVPB SCH (10:26)
[2017-08-02] MEDS: amLODIPine BESYLATE 10 MG TABLET (FP) PO SCH (10:26)
[2017-08-02] MEDS: CLOPIDOGREL BISULFATE 75 MG TABLET (FP) PO SCH (10:26)
[2017-08-02] MEDS: ENOXAPARIN NA (PORCINE) 40 MG/0.4 ML DISP.SYRIN SQ SCH (10:27)
[2017-08-02] MEDS ORDERED: POLYETHYLENE GLYCOL 3350 119 GM BTL PO ONE (11:12)
[2017-08-02] MEDS: AZITHROMYCIN IVPB 250 MG in DEXTROSE 5%-WATER - 250 ML IVPB SCH (11:53)
--- NOTE | 2017-08-02 13:31 | PN ---
Progress Note (short form) - Note Progress Note: Subjective: The patient was seen and examined at the bedside, he states he has not had a bowel movement since he came to the hospital! Current Medications Generic Name Dose Route Start Last Admin Trade Name Bailey PRN Reason Stop Dose Admin Amlodipine Besylate 10 mg 07/29/17 12:30 08/02/17 10:26 Norvasc - PO 10 mg DAILY NARINDER Administration Atorvastatin Calcium 10 mg 07/29/17 22:00 08/01/17 21:15 Lipitor - PO 10 mg HS NARINDER Administration Clopidogrel Bisulfate 75 mg 07/30/17 10:00 08/02/17 10:26 Plavix - PO 75 mg DAILY NARINDER Administration Enoxaparin Sodium 40 mg 07/30/17 10:00 08/02/17 10:27 Lovenox - SQ 40 mg DAILY NARINDER Administration CEFTRIAXONE 1 G/50 ML PREMIX 50 mls @ 100 mls/hr 07/30/17 10:00 08/02/17 10: 26 Ceftriaxone 1 Gm-D5w Bag IVPB 100 mls/hr DAILY NARINDER Administration Azithromycin 250 mg/ Dextrose 250 mls @ 250 mls/hr 08/01/17 12:30 08/02/17 11 :53 IVPB 250 mls/hr DAILY NARINDER Administration Potassium Chloride/Sodium Chloride 20 meq in 1,000 mls @ 50 mls/hr 08/01/17 13 :16 08/02/17 12:38 Ns+20 Meq Kcl - IV Not Given ASDIR NARINDER Objective: Vital Signs Period Temp Pulse Resp BP Sys/Macias Pulse Ox Last 24 Hr 97.4 F-98.3 F 73-82 18-20 148-162/63-86 97-97 Physical Exam: General: NAD Lungs: CTA bilaterally Heart: RRR, S1S2 Abd: Soft, non-tender, non-distended. Normoactive bowel sounds Ext: Warm, well-perfused. 2+ DP/PT bilaterally CBCD WBC 12.0 K/mm3 (4.0-10.0) H 08/02/17 07:40 RBC 4.40 M/mm3 (4.00-5.60) 08/02/17 07:40 Hgb 13.2 GM/dL (11.7-16.9) 08/02/17 07:40 Hct 39.6 % (35.4-49) 08/02/17 07:40 MCV 89.9 fl (80-96) 08/02/17 07:40 MCHC 33.3 g/dl (32.0-35.9) 08/02/17 07:40 RDW 13.5 % (11.9-15.9) 08/02/17 07:40 Plt Count 499 K/MM3 (134-434) H 08/02/17 07:40 MPV 6.8 fl (7.5-11.1) L 08/02/17 07:40 CMP Sodium 129 mmol/L (136-145) L 08/02/17 07:40 Potassium 4.5 mmol/L (3.5-5.1) 08/02/17 07:40 Chloride 95 mmol/L (98-107) L 08/02/17 07:40 Carbon Dioxide 25 mmol/L (21-32) 08/02/17 07:40 Anion Gap 9 (8-16) 08/02/17 07:40 BUN 7 mg/dL (7-18) D 08/02/17 07:40 Creatinine 0.4 mg/dL (0.7-1.3) L 08/02/17 07:40 Creat Clearance w eGFR > 60 (>60) 08/01/17 07:15 Random Glucose 90 mg/dL (74-106) 08/02/17 07:40 Calcium 7.7 mg/dL (8.5-10.1) L 08/02/17 07:40 Total Bilirubin 0.2 mg/dL (0.2-1.0) 08/01/17 07:15 AST 20 U/L (15-37) 08/01/17 07:15 ALT 21 U/L (12-78) 08/01/17 07:15 Alkaline Phosphatase 71 U/L (45-117) 08/01/17 07:15 Total Protein 4.4 g/dl (6.4-8.2) L 08/01/17 07:15 Albumin 1.6 g/dl (3.4-5.0) L 08/01/17 07:15 CARDIAC ENZYMES Troponin I 0.02 ng/ml (0.00-0.05) 07/29/17 09:55 Microbiology 07/29/17 10:25 Blood - Peripheral Venous Blood Culture - Preliminary NO GROWTH OBTAINED AFTER 96 HOURS, INCUBATION TO CONTINUE FOR 1 DAYS. 07/29/17 10:25 Blood - Peripheral Venous Blood Culture - Preliminary NO GROWTH OBTAINED AFTER 96 HOURS, INCUBATION TO CONTINUE FOR 1 DAYS. 07/29/17 10:12 Throat Throat Culture - Final NO BETA HEMOLYTIC STREPTOCOCCI ISOLATED 07/29/17 10:12 Throat Group A Strep Rapid Antigen - Final 07/29/17 10:12 Nasopharyngeal Swab Influenza Types A,B Antigen (KAREEN) - Final 07/29/17 10:12 Nasopharyngeal Swab - Final Assessment: This is an 82 year old male with PMHx of HTN, hyperlipidemia, anemia , CAD, who presented to the ED with shortness of breath, weakness, cough, decreased appetite x5 days. Plan: 1) Severe hyponatremia: - Continues to improve, Na 129 today - Likely hypovolemia hyponatremia - Continue Normal Saline - Urine studies noted - Appreciate nephrology consult 2) Leukocytosis - Afebrile - Viral vs. pneumonia - Continue Ceftriaxone/Azithromycin for now - Urine legionella Ag ordered, not collected - Chest X-ray with no acute pathology - Influenza A&B negative - Throat culture negative 3) CAD - Continue Plavix - Continue Lipitor 4) HTN - Continue Norvasc 5) F/E/N: - Patient reports he is only able to swallow dysphagia pureed, f/u swallow evaluation and barium esophagram - Monitor electrolytes 6) Prophylaxis: - OOB ambulating - Lovenox 40mg sq daily 7) Dispo: - Requires continued inpatient care CODE STATUS: FULL CODE Visit type - Emergency Visit Emergency Visit: Yes ED Registration Date: 07/29/17 Care time: The patient presented to the Emergency Department on the above date and was hospitalized for further evaluation of their emergent condition. - New Patient This patient is new to me today: No - Critical Care Critical Care patient: No
--- NOTE | 2017-08-02 14:36 | PN ---
Progress Note, Physician History of Present Illness: Pt seen and examined at bedside. He complains of decrease PO intake. He also complains of constipation. - Current Medication List Current Medications: Active Medications Amlodipine Besylate (Norvasc -) 10 mg PO DAILY [facility] Last Admin: 08/02/17 10:26 Dose: 10 mg Atorvastatin Calcium (Lipitor -) 10 mg PO HS [facility] Last Admin: 08/01/17 21:15 Dose: 10 mg Clopidogrel Bisulfate (Plavix -) 75 mg PO DAILY [facility] Last Admin: 08/02/17 10:26 Dose: 75 mg Enoxaparin Sodium (Lovenox -) 40 mg SQ DAILY [facility] Last Admin: 08/02/17 10:27 Dose: 40 mg CEFTRIAXONE 1 G/50 ML PREMIX (Ceftriaxone 1 Gm-D5w Bag) 50 mls @ 100 mls/hr IVPB DAILY [facility] Last Admin: 08/02/17 10:26 Dose: 100 mls/hr Azithromycin 250 mg/ Dextrose 250 mls @ 250 mls/hr IVPB DAILY [facility] Last Admin: 08/02/17 11:53 Dose: 250 mls/hr Potassium Chloride/Sodium Chloride (Ns+20 Meq Kcl -) 20 meq in 1,000 mls @ 50 mls/hr IV ASDIR [facility] Last Admin: 08/02/17 12:38 Dose: Not Given - Objective Vital Signs: Vital Signs Temperature 98.3 F 08/02/17 08:00 Pulse Rate 82 08/02/17 09:00 Respiratory Rate 20 08/02/17 09:00 Blood Pressure 152/86 08/02/17 09:00 O2 Sat by Pulse Oximetry (%) 97 08/02/17 08:00 Constitutional: Yes: Calm Eyes: Yes: Conjunctiva Clear HENT: Yes: Atraumatic Neck: Yes: Supple Cardiovascular: Yes: S1, S2 Respiratory: Yes: CTA Bilaterally Gastrointestinal: Yes: Soft Genitourinary: Yes: WNL Extremities: Yes: WNL Edema: No Neurological: Yes: Oriented Psychiatric: Yes: Oriented Labs: CBC, BMP 08/02/17 07:40 08/02/17 07:40 INR, PTT INR 0.93 (0.82-1.09) 07/29/17 10:25 Problem List - Problems (1) CAD (coronary artery disease) Code(s): I25.10 - ATHSCL HEART DISEASE OF [place] CORONARY ARTERY W/O ANG PCTRS (2) Decrease in appetite Code(s): R63.0 - ANOREXIA (3) HLD (hyperlipidemia) Code(s): E78.5 - HYPERLIPIDEMIA, UNSPECIFIED (4) HTN (hypertension) Code(s): I10 - ESSENTIAL (PRIMARY) HYPERTENSION (5) Hyponatremia Code(s): E87.1 - HYPO-OSMOLALITY AND HYPONATREMIA Assessment/Plan Current Medications Generic Name Dose Route Start Last Admin Trade Name Bailey PRN Reason Stop Dose Admin Amlodipine Besylate 10 mg 07/29/17 12:30 08/02/17 10:26 Norvasc - PO 10 mg DAILY NARINDER Administration Atorvastatin Calcium 10 mg 07/29/17 22:00 08/01/17 21:15 Lipitor - PO 10 mg HS NARINDER Administration Clopidogrel Bisulfate 75 mg 07/30/17 10:00 08/02/17 10:26 Plavix - PO 75 mg DAILY NARINDER Administration Enoxaparin Sodium 40 mg 07/30/17 10:00 08/02/17 10:27 Lovenox - SQ 40 mg DAILY NARINDER Administration CEFTRIAXONE 1 G/50 ML PREMIX 50 mls @ 100 mls/hr 07/30/17 10:00 08/02/17 10: 26 Ceftriaxone 1 Gm-D5w Bag IVPB 100 mls/hr DAILY NARINDER Administration Azithromycin 250 mg/ Dextrose 250 mls @ 250 mls/hr 08/01/17 12:30 08/02/17 11 :53 IVPB 250 mls/hr DAILY NARINDER Administration Potassium Chloride/Sodium Chloride 20 meq in 1,000 mls @ 50 mls/hr 08/01/17 13 :16 08/02/17 12:38 Ns+20 Meq Kcl - IV Not Given ASDIR NARINDER Impression 1. hyponatremia - hypovolemic 2. Leukocytosis 3. HTN 4. HLD 5. PVD 6. GERD 7. anemia 8. pna vs influenza Plan - cont saline - change fluids to ns - repeat labs in am - start colace - hypovolemic hyponatremia - improving - encourage PO intake
[2017-08-02] MEDS ORDERED: DOCUSATE SODIUM 100 MG CAPSULE (FP) PO PRN (14:38)
[2017-08-02] MEDS ORDERED: SODIUM CHLORIDE 1,000 ML IV SCH (14:45)
[2017-08-02] MEDS: ATORVASTATIN CA 10 MG TABLET (FP) PO SCH (21:27)
[2017-08-03 08:18] LABS: HEMATOCRIT 37.9 % (35.4-49); HEMOGLOBIN 12.8 GM/dL (11.7-16.9); MCH 30.4 pg (25.7-33.7); MCHC 33.9 g/dl (32.0-35.9); MEAN CELL VOLUME 89.8 fl (80-96); MEAN PLT VOLUME 6.8 fl (7.5-11.1); PLATELET COUNT 471 K/MM3 (134-434); RBC 4.22 M/mm3 (4.00-5.60); RDW 13.4 % (11.9-15.9); WHITE BLOOD COUNT 10.7 K/mm3 (4.0-10.0)
[2017-08-03 08:26] LABS: ANION GAP 8 (8-16); BLOOD UREA NITROGEN 6 mg/dL (7-18); CALCIUM 7.2 mg/dL (8.5-10.1); CHLORIDE 93 mmol/L (98-107); CO2 25 mmol/L (21-32); GLUCOSE,RANDOM 86 mg/dL (74-106); POTASSIUM 4.4 mmol/L (3.5-5.1); SODIUM 126 mmol/L (136-145)
[2017-08-03 08:28] LABS: CREATININE 0.4 mg/dL (0.7-1.3)
[2017-08-03] MEDS: CLOPIDOGREL BISULFATE 75 MG TABLET (FP) PO SCH (09:04)
[2017-08-03] MEDS: amLODIPine BESYLATE 10 MG TABLET (FP) PO SCH (09:04)
[2017-08-03] MEDS: ENOXAPARIN NA (PORCINE) 40 MG/0.4 ML DISP.SYRIN SQ SCH (09:04)
[2017-08-03] MEDS: CEFTRIAXONE 1 G/50 ML PREMIX 50 ML IVPB SCH (09:04)
[2017-08-03] MEDS: POLYETHYLENE GLYCOL 3350 119 GM BTL PO SCH (09:04)
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
[2017-08-03] MEDS: AZITHROMYCIN IVPB 250 MG in DEXTROSE 5%-WATER - 250 ML IVPB SCH (10:41)
--- NOTE | 2017-08-03 14:04 | PN ---
Physical Exam: SUBJECTIVE: Patient seen and examined. He reports mild LLQ pain. + BM last night. Per RN difficulty with swallowing PO meds this AM OBJECTIVE: Vital Signs Period Temp Pulse Resp BP Sys/Macias Pulse Ox Last 24 Hr 97.6 F-98.5 F 20-84 16-81 155-176/65-77 92-94 PE Neuro: alert, awake, cn 2-12 intact Pulm: bi basilar rhonchi, + NC CV: s1 s2 rrr Abd: LLQ tenderness to deep palpation, abd soft Ext: no le edema, warm Laboratory Results - last 24 hr 08/03/17 08/03/17 06:00 06:00 WBC 10.7 H RBC 4.22 Hgb 12.8 Hct 37.9 MCV 89.8 MCH 30.4 MCHC 33.9 RDW 13.4 Plt Count 471 H MPV 6.8 L Sodium 126 L Potassium 4.4 Chloride 93 L Carbon Dioxide 25 Anion Gap 8 BUN 6 L Creatinine 0.4 L Random Glucose 86 Calcium 7.2 L Active Medications Generic Name Dose Route Start Last Admin Trade Name Freq PRN Reason Stop Dose Admin Amlodipine Besylate 10 mg 07/29/17 12:30 08/03/17 09:04 Norvasc - PO 10 mg DAILY NARINDER Administration Atorvastatin Calcium 10 mg 07/29/17 22:00 08/02/17 21:27 Lipitor - PO 10 mg HS NARINDER Administration Clopidogrel Bisulfate 75 mg 07/30/17 10:00 08/03/17 09:04 Plavix - PO 75 mg DAILY NARINDER Administration Docusate Sodium 100 mg 08/02/17 14:38 08/02/17 16:54 Colace - PO 100 mg Q12H PRN Administration CONSTIPATION Enoxaparin Sodium 40 mg 07/30/17 10:00 08/03/17 09:04 Lovenox - SQ 40 mg DAILY NARINDER Administration CEFTRIAXONE 1 G/50 ML PREMIX 50 mls @ 100 mls/hr 07/30/17 10:00 08/03/17 09: 04 Ceftriaxone 1 Gm-D5w Bag IVPB 100 mls/hr DAILY NARINDER Administration Azithromycin 250 mg/ Dextrose 250 mls @ 250 mls/hr 08/01/17 12:30 08/03/17 10 :41 IVPB 250 mls/hr DAILY NARINDER Administration Sodium Chloride 1,000 mls @ 50 mls/hr 08/02/17 14:45 08/02/17 16:33 Normal Saline - IV 08/03/17 14:38 50 mls/hr ASDIR NARINDER Administration Polyethylene Glycol 17 gm 08/03/17 10:00 08/03/17 09:04 Miralax (For Daily Use) - PO 17 gm DAILY NARINDER Administration Assessment: 82 year old male with PMHx of HTN, hyperlipidemia, anemia, CAD admitted with shortness of breath, weakness, cough, decreased appetite x5 days. Plan: 1. Severe hyponatremia, hypovolemia hyponatremia - Downtrended today - Continue ns 50cc/hr 2. Leukocytosis - Improved, mildly - Viral vs. pneumonia - Infectious work up negative thus far - Continue Ceftriaxone/Azithromycin, stop after tomorrows dose - Urine legionella Ag ordered, not collected 3. CAD - Continue Plavix - Continue Lipitor 4. HTN - Controlled - Continue Norvasc 5. Impaired swallowing - Dysphagia pureed - Barium esophagram test today 7. Thrombocytosis - Downtrending - Will trend 8. LLQ pain, constipation - US abd ordered - Constipation resolved 9. Prophylaxis - OOB ambulating - Lovenox 40mg sq daily CODE STATUS: FULL CODE Problem List - Problems (1) Hyponatremia Code(s): E87.1 - HYPO-OSMOLALITY AND HYPONATREMIA (2) HTN (hypertension) Code(s): I10 - ESSENTIAL (PRIMARY) HYPERTENSION (3) Leukocytosis Code(s): D72.829 - ELEVATED WHITE BLOOD CELL COUNT, UNSPECIFIED (4) SOB (shortness of breath) Code(s): R06.02 - SHORTNESS OF BREATH (5) Weakness Code(s): R53.1 - WEAKNESS (6) Decrease in appetite Code(s): R63.0 - ANOREXIA (7) CAD (coronary artery disease) Code(s): I25.10 - ATHSCL HEART DISEASE OF [place] CORONARY ARTERY W/O ANG PCTRS (8) HLD (hyperlipidemia) Code(s): E78.5 - HYPERLIPIDEMIA, UNSPECIFIED (9) Anemia Code(s): D64.9 - ANEMIA, UNSPECIFIED Visit type - Emergency Visit Emergency Visit: Yes ED Registration Date: 07/29/17 Care time: The patient presented to the Emergency Department on the above date and was hospitalized for further evaluation of their emergent condition. - New Patient This patient is new to me today: No - Critical Care Critical Care patient: No
--- NOTE | 2017-08-03 16:27 | PN ---
Progress Note, Physician History of Present Illness: Pt seen and examined at bedside. He is awake and alert. - Current Medication List Current Medications: Active Medications Amlodipine Besylate (Norvasc -) 10 mg PO DAILY [facility] Last Admin: 08/03/17 09:04 Dose: 10 mg Atorvastatin Calcium (Lipitor -) 10 mg PO HS [facility] Last Admin: 08/02/17 21:27 Dose: 10 mg Clopidogrel Bisulfate (Plavix -) 75 mg PO DAILY [facility] Last Admin: 08/03/17 09:04 Dose: 75 mg Docusate Sodium (Colace -) 100 mg PO Q12H PRN PRN Reason: CONSTIPATION Last Admin: 08/02/17 16:54 Dose: 100 mg Enoxaparin Sodium (Lovenox -) 40 mg SQ DAILY [facility] Last Admin: 08/03/17 09:04 Dose: 40 mg CEFTRIAXONE 1 G/50 ML PREMIX (Ceftriaxone 1 Gm-D5w Bag) 50 mls @ 100 mls/hr IVPB DAILY [facility] Last Admin: 08/03/17 09:04 Dose: 100 mls/hr Azithromycin 250 mg/ Dextrose 250 mls @ 250 mls/hr IVPB DAILY [facility] Last Admin: 08/03/17 10:41 Dose: 250 mls/hr Polyethylene Glycol (Miralax (For Daily Use) -) 17 gm PO DAILY [facility] Last Admin: 08/03/17 09:04 Dose: 17 gm - Objective Vital Signs: Vital Signs Temperature 97.7 F 08/03/17 14:00 Pulse Rate 78 08/03/17 14:00 Respiratory Rate 21 08/03/17 14:00 Blood Pressure 156/67 08/03/17 14:00 O2 Sat by Pulse Oximetry (%) 94 L 08/03/17 08:00 Constitutional: Yes: Calm Eyes: Yes: Conjunctiva Clear HENT: Yes: Atraumatic Cardiovascular: Yes: S1, S2 Respiratory: Yes: Rhonchi Gastrointestinal: Yes: Soft Genitourinary: Yes: WNL Musculoskeletal: Yes: WNL Edema: Yes Edema: LLE: Trace, RLE: Trace Neurological: Yes: Oriented Psychiatric: Yes: Oriented Labs: CBC, BMP 08/03/17 06:00 08/03/17 06:00 INR, PTT INR 0.93 (0.82-1.09) 07/29/17 10:25 Problem List - Problems (1) CAD (coronary artery disease) Code(s): I25.10 - ATHSCL HEART DISEASE OF [place] CORONARY ARTERY W/O ANG PCTRS (2) Decrease in appetite Code(s): R63.0 - ANOREXIA (3) HLD (hyperlipidemia) Code(s): E78.5 - HYPERLIPIDEMIA, UNSPECIFIED (4) HTN (hypertension) Code(s): I10 - ESSENTIAL (PRIMARY) HYPERTENSION (5) Hyponatremia Code(s): E87.1 - HYPO-OSMOLALITY AND HYPONATREMIA Assessment/Plan Current Medications Generic Name Dose Route Start Last Admin Trade Name Freq PRN Reason Stop Dose Admin Amlodipine Besylate 10 mg 07/29/17 12:30 08/03/17 09:04 Norvasc - PO 10 mg DAILY NARINDER Administration Atorvastatin Calcium 10 mg 07/29/17 22:00 08/02/17 21:27 Lipitor - PO 10 mg HS NARINDER Administration Clopidogrel Bisulfate 75 mg 07/30/17 10:00 08/03/17 09:04 Plavix - PO 75 mg DAILY NARINDER Administration Docusate Sodium 100 mg 08/02/17 14:38 08/02/17 16:54 Colace - PO 100 mg Q12H PRN Administration CONSTIPATION Enoxaparin Sodium 40 mg 07/30/17 10:00 08/03/17 09:04 Lovenox - SQ 40 mg DAILY NARINDER Administration CEFTRIAXONE 1 G/50 ML PREMIX 50 mls @ 100 mls/hr 07/30/17 10:00 08/03/17 09: 04 Ceftriaxone 1 Gm-D5w Bag IVPB 100 mls/hr DAILY NARINDER Administration Azithromycin 250 mg/ Dextrose 250 mls @ 250 mls/hr 08/01/17 12:30 08/03/17 10 :41 IVPB 250 mls/hr DAILY NARINDER Administration Polyethylene Glycol 17 gm 08/03/17 10:00 08/03/17 09:04 Miralax (For Daily Use) - PO 17 gm DAILY NARINDER Administration Impression 1. hyponatremia - hypovolemic 2. Leukocytosis 3. HTN 4. HLD 5. PVD 6. GERD 7. anemia 8. pna vs influenza Plan - sodium is worse - will repeat urine studies - get stat cxr - restrict free water to 800 cc - encourage PO intake - discussed with medical team
[2017-08-03] MEDS ORDERED: FUROSEMIDE 40 MG/4 ML INJECTABLE VIAL IVPUSH ONE (17:30)
[2017-08-03] MEDS ORDERED: PT OWN MED DRAWER 7, Y5N ONE (21:02)
[2017-08-03] MEDS: ATORVASTATIN CA 10 MG TABLET (FP) PO SCH (21:13)
[2017-08-03] MEDS: SODIUM CHLORIDE 1 GM TABLET PO SCH (22:02)
[2017-08-04 07:53] LABS: BASO % 0.2 % (0-2.0); EOS % 1.1 % (0-4.5); HEMATOCRIT 35.8 % (35.4-49); HEMOGLOBIN 12.2 GM/dL (11.7-16.9); LYMPH % 11.2 % (8-40); MCH 30.3 pg (25.7-33.7); MCHC 34.1 g/dl (32.0-35.9); MEAN CELL VOLUME 88.8 fl (80-96); MEAN PLT VOLUME 6.8 fl (7.5-11.1); NEUT % 78.5 % (42.8-82.8); PLATELET COUNT 470 K/MM3 (134-434); RBC 4.04 M/mm3 (4.00-5.60); RDW 13.4 % (11.9-15.9); WHITE BLOOD COUNT 9.8 K/mm3 (4.0-10.0)
[2017-08-04 09:34] LABS: CHLORIDE 91 mmol/L (98-107); POTASSIUM 4.3 mmol/L (3.5-5.1); SODIUM 127 mmol/L (136-145)
[2017-08-04 10:04] LABS: ANION GAP 10 (8-16); BLOOD UREA NITROGEN 7 mg/dL (7-18); CALCIUM 7.6 mg/dL (8.5-10.1); CO2 26 mmol/L (21-32); CREATININE 0.5 mg/dL (0.7-1.3); GLUCOSE,RANDOM 85 mg/dL (74-106)
[2017-08-04] MEDS ORDERED: PT OWN MED DRAWER 7, Y5N ONE ×2 (10:16→21:06)
[2017-08-04] MEDS: ENOXAPARIN NA (PORCINE) 40 MG/0.4 ML DISP.SYRIN SQ SCH (10:17)
[2017-08-04] MEDS: CEFTRIAXONE 1 G/50 ML PREMIX 50 ML IVPB SCH (10:17)
[2017-08-04] MEDS: CLOPIDOGREL BISULFATE 75 MG TABLET (FP) PO SCH (10:18)
[2017-08-04] MEDS: POLYETHYLENE GLYCOL 3350 119 GM BTL PO SCH (10:18)
[2017-08-04] MEDS: SODIUM CHLORIDE 1 GM TABLET PO SCH ×2 (10:18→21:15)
[2017-08-04] MEDS: amLODIPine BESYLATE 10 MG TABLET (FP) PO SCH (10:18)
[2017-08-04] MEDS: AZITHROMYCIN IVPB 250 MG in DEXTROSE 5%-WATER - 250 ML IVPB SCH (11:04)
[2017-08-04] MEDS ORDERED: FUROSEMIDE 40 MG/4 ML INJECTABLE VIAL IVPUSH ONE (12:29)
--- NOTE | 2017-08-04 12:30 | PN ---
Progress Note, Physician History of Present Illness: Pt seen and examined at bedside. He says he feels better today. He still has poor PO intake. - Current Medication List Current Medications: Active Medications Amlodipine Besylate (Norvasc -) 10 mg PO DAILY [facility] Last Admin: 08/04/17 10:18 Dose: 10 mg Atorvastatin Calcium (Lipitor -) 10 mg PO HS [facility] Last Admin: 08/03/17 21:13 Dose: 10 mg Clopidogrel Bisulfate (Plavix -) 75 mg PO DAILY [facility] Last Admin: 08/04/17 10:18 Dose: 75 mg Docusate Sodium (Colace -) 100 mg PO Q12H PRN PRN Reason: CONSTIPATION Last Admin: 08/02/17 16:54 Dose: 100 mg Enoxaparin Sodium (Lovenox -) 40 mg SQ DAILY [facility] Last Admin: 08/04/17 10:17 Dose: 40 mg CEFTRIAXONE 1 G/50 ML PREMIX (Ceftriaxone 1 Gm-D5w Bag) 50 mls @ 100 mls/hr IVPB DAILY [facility] Last Admin: 08/04/17 10:17 Dose: 100 mls/hr Azithromycin 250 mg/ Dextrose 250 mls @ 250 mls/hr IVPB DAILY [facility] Last Admin: 08/04/17 11:04 Dose: 250 mls/hr Polyethylene Glycol (Miralax (For Daily Use) -) 17 gm PO DAILY [facility] Last Admin: 08/04/17 10:18 Dose: 17 gm Sodium Chloride (Sodium Chloride Tablet -) 1 gm PO BID [facility] Last Admin: 08/04/17 10:18 Dose: 1 gm - Objective Vital Signs: Vital Signs Temperature 97.5 F L 08/04/17 09:00 Pulse Rate 75 08/04/17 09:00 Respiratory Rate 20 08/04/17 09:00 Blood Pressure 172/69 08/04/17 09:00 O2 Sat by Pulse Oximetry (%) 94 L 08/03/17 21:00 Constitutional: Yes: Calm Eyes: Yes: Conjunctiva Clear HENT: Yes: Atraumatic Neck: Yes: Supple Cardiovascular: Yes: S1, S2 Respiratory: Yes: Rhonchi Gastrointestinal: Yes: Soft Genitourinary: Yes: WNL Musculoskeletal: Yes: WNL Edema: Yes Edema: LLE: Trace, RLE: Trace Neurological: Yes: Oriented Psychiatric: Yes: Oriented Labs: CBC, BMP 08/04/17 06:35 08/04/17 06:35 INR, PTT INR 0.93 (0.82-1.09) 07/29/17 10:25 - ....Imaging Chest X-ray: Report Reviewed Problem List - Problems (1) CAD (coronary artery disease) Code(s): I25.10 - ATHSCL HEART DISEASE OF [place] CORONARY ARTERY W/O ANG PCTRS (2) Decrease in appetite Code(s): R63.0 - ANOREXIA (3) HLD (hyperlipidemia) Code(s): E78.5 - HYPERLIPIDEMIA, UNSPECIFIED (4) HTN (hypertension) Code(s): I10 - ESSENTIAL (PRIMARY) HYPERTENSION (5) Hyponatremia Code(s): E87.1 - HYPO-OSMOLALITY AND HYPONATREMIA Assessment/Plan Current Medications Generic Name Dose Route Start Last Admin Trade Name Freq PRN Reason Stop Dose Admin Amlodipine Besylate 10 mg 07/29/17 12:30 08/04/17 10:18 Norvasc - PO 10 mg DAILY NARINDER Administration Atorvastatin Calcium 10 mg 07/29/17 22:00 08/03/17 21:13 Lipitor - PO 10 mg HS NARINDER Administration Clopidogrel Bisulfate 75 mg 07/30/17 10:00 08/04/17 10:18 Plavix - PO 75 mg DAILY NARINDER Administration Docusate Sodium 100 mg 08/02/17 14:38 08/02/17 16:54 Colace - PO 100 mg Q12H PRN Administration CONSTIPATION Enoxaparin Sodium 40 mg 07/30/17 10:00 08/04/17 10:17 Lovenox - SQ 40 mg DAILY NARINDER Administration Polyethylene Glycol 17 gm 08/03/17 10:00 08/04/17 10:18 Miralax (For Daily Use) - PO 17 gm DAILY NARINDER Administration Sodium Chloride 1 gm 08/03/17 22:00 08/04/17 10:18 Sodium Chloride Tablet - PO 1 gm BID NARINDER Administration Impression 1. hyponatremia - hypovolemic 2. Leukocytosis 3. HTN 4. HLD 5. PVD 6. GERD 7. anemia 8. pna vs influenza Plan - sodium improving - will give another dose of lasix - discussed with medical team - cxr reviewed - restrict free water to 800 cc - encourage PO intake
--- NOTE | 2017-08-04 12:34 | PN ---
Physical Exam: SUBJECTIVE: Patient seen and examined. He says he feel a little better today, his breathing is less labored no longer needing supplemental o2. He is forcing his food down. OBJECTIVE: Vital Signs Period Temp Pulse Resp BP Sys/Macias Pulse Ox Last 24 Hr 97.5 F-97.9 F 75-80 19-21 156-173/67-75 94 PE Neuro: alert, awake, cn 2-12 intact Pulm: diminished, less rales CV: s1 s2 rrr Abd: s nt nd + bs Ext: no le edema, warm Laboratory Results - last 24 hr 08/04/17 08/04/17 06:35 06:35 WBC 9.8 RBC 4.04 Hgb 12.2 Hct 35.8 MCV 88.8 MCH 30.3 MCHC 34.1 RDW 13.4 Plt Count 470 H MPV 6.8 L Neutrophils % 78.5 Lymphocytes % 11.2 Monocytes % 9.0 Eosinophils % 1.1 Basophils % 0.2 Sodium 127 L Potassium 4.3 Chloride 91 L Carbon Dioxide 26 Anion Gap 10 BUN 7 Creatinine 0.5 L D Random Glucose 85 Calcium 7.6 L Active Medications Generic Name Dose Route Start Last Admin Trade Name Freq PRN Reason Stop Dose Admin Amlodipine Besylate 10 mg 07/29/17 12:30 08/04/17 10:18 Norvasc - PO 10 mg DAILY NARINDER Administration Atorvastatin Calcium 10 mg 07/29/17 22:00 08/03/17 21:13 Lipitor - PO 10 mg HS NARINDER Administration Clopidogrel Bisulfate 75 mg 07/30/17 10:00 08/04/17 10:18 Plavix - PO 75 mg DAILY NARINDER Administration Docusate Sodium 100 mg 08/02/17 14:38 08/02/17 16:54 Colace - PO 100 mg Q12H PRN Administration CONSTIPATION Enoxaparin Sodium 40 mg 07/30/17 10:00 08/04/17 10:17 Lovenox - SQ 40 mg DAILY NARINDER Administration Furosemide 40 mg 08/04/17 12:29 Lasix Injection - IVPUSH 08/04/17 12:30 ONCE ONE Polyethylene Glycol 17 gm 08/03/17 10:00 08/04/17 10:18 Miralax (For Daily Use) - PO 17 gm DAILY NARINDER Administration Sodium Chloride 1 gm 08/03/17 22:00 08/04/17 10:18 Sodium Chloride Tablet - PO 1 gm BID NARINDER Administration Assessment: 82 year old male with PMHx of HTN, hyperlipidemia, anemia, CAD admitted with shortness of breath, weakness, cough, decreased appetite x5 days. Plan: 1. Severe hyponatremia, hypovolemia hyponatremia - Started salt tabs 1 BID - Maintain free water fluid restriction 800cc - No additional IVF 2. Pleural effusions - Given lasix 40mg x1 yesterday - Will give additional dose today - Check cxr in AM 3. Leukocytosis - Resolved - Viral vs. pneumonia - Stop ceftriaxone, azithro today 4. CAD - Continue Plavix - Continue Lipitor 5. HTN - Controlled - Continue Norvasc 6. Impaired swallowing - Improved - Barium eval negative - Dysphagia pureed 7. Thrombocytosis - Possibly reactive to infectious process, no change today - Will trend 8. LLQ pain, constipation - US abd negative for acute issue - Constipation resolved 9. Prophylaxis - OOB ambulating - Lovenox 40mg sq daily CODE STATUS: FULL CODE Problem List - Problems (1) Hyponatremia Code(s): E87.1 - HYPO-OSMOLALITY AND HYPONATREMIA (2) HTN (hypertension) Code(s): I10 - ESSENTIAL (PRIMARY) HYPERTENSION (3) Leukocytosis Code(s): D72.829 - ELEVATED WHITE BLOOD CELL COUNT, UNSPECIFIED (4) SOB (shortness of breath) Code(s): R06.02 - SHORTNESS OF BREATH (5) Weakness Code(s): R53.1 - WEAKNESS (6) Decrease in appetite Code(s): R63.0 - ANOREXIA (7) CAD (coronary artery disease) Code(s): I25.10 - ATHSCL HEART DISEASE OF [place] CORONARY ARTERY W/O ANG PCTRS (8) HLD (hyperlipidemia) Code(s): E78.5 - HYPERLIPIDEMIA, UNSPECIFIED (9) Anemia Code(s): D64.9 - ANEMIA, UNSPECIFIED Visit type - Emergency Visit Emergency Visit: Yes ED Registration Date: 07/29/17 Care time: The patient presented to the Emergency Department on the above date and was hospitalized for further evaluation of their emergent condition. - New Patient This patient is new to me today: No - Critical Care Critical Care patient: No
--- NOTE | 2017-08-04 14:55 | PN ---
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 Pt tolerating pureed diet well. Reassessed with Banana, which he readily ate without difficulty. He is requesting a regular tray. REC: Infection improving. soft, easy to chew foods Thin liquids ] (Pt is edentulous, and sdoes not use his dentures to eat.
[2017-08-04] MEDS: ATORVASTATIN CA 10 MG TABLET (FP) PO SCH (21:15)
[2017-08-05 07:36] LABS: HEMATOCRIT 35.5 % (35.4-49); MCH 30.4 pg (25.7-33.7); MCHC 33.7 g/dl (32.0-35.9); MEAN CELL VOLUME 90.1 fl (80-96); PLATELET COUNT 477 K/MM3 (134-434); RBC 3.94 M/mm3 (4.00-5.60); RDW 13.5 % (11.9-15.9); WHITE BLOOD COUNT 10.6 K/mm3 (4.0-10.0)
[2017-08-05 08:03] LABS: ALBUMIN 1.9 g/dl (3.4-5.0); ANION GAP 6 (8-16); BLOOD UREA NITROGEN 12 mg/dL (7-18); CALCIUM 7.2 mg/dL (8.5-10.1); CHLORIDE 91 mmol/L (98-107); CO2 28 mmol/L (21-32); CREATININE 0.5 mg/dL (0.7-1.3); GLUCOSE,RANDOM 88 mg/dL (74-106); POTASSIUM 4.3 mmol/L (3.5-5.1); SGOT/AST 27 U/L (15-37); SGPT/ALT 32 U/L (12-78); SODIUM 125 mmol/L (136-145); TOT PROT 4.7 g/dl (6.4-8.2)
[2017-08-05 08:05] LABS: ALK PHOS 78 U/L (45-117); BILIRUBIN,TOTAL 0.5 mg/dL (0.2-1.0)
[2017-08-05] MEDS ORDERED: PT OWN MED DRAWER 7, Y5N ONE ×2 (09:30→20:46)
[2017-08-05] MEDS: CLOPIDOGREL BISULFATE 75 MG TABLET (FP) PO SCH (09:31)
[2017-08-05] MEDS: amLODIPine BESYLATE 10 MG TABLET (FP) PO SCH (09:31)
[2017-08-05] MEDS: ENOXAPARIN NA (PORCINE) 40 MG/0.4 ML DISP.SYRIN SQ SCH (09:31)
[2017-08-05] MEDS: SODIUM CHLORIDE 1 GM TABLET PO SCH ×2 (09:32→21:14)
[2017-08-05] MEDS: POLYETHYLENE GLYCOL 3350 119 GM BTL PO SCH (09:34)
--- NOTE | 2017-08-05 11:18 | PN ---
Progress Note, Physician History of Present Illness: Pt seen and examined at bedside. He is out of bed to chair today. He says this is the first day that he actually is feeling better. He was able to have breakfast. - Current Medication List Current Medications: Active Medications Amlodipine Besylate (Norvasc -) 10 mg PO DAILY [facility] Last Admin: 08/05/17 09:31 Dose: 10 mg Atorvastatin Calcium (Lipitor -) 10 mg PO HS [facility] Last Admin: 08/04/17 21:15 Dose: 10 mg Clopidogrel Bisulfate (Plavix -) 75 mg PO DAILY [facility] Last Admin: 08/05/17 09:31 Dose: 75 mg Docusate Sodium (Colace -) 100 mg PO Q12H PRN PRN Reason: CONSTIPATION Last Admin: 08/02/17 16:54 Dose: 100 mg Enoxaparin Sodium (Lovenox -) 40 mg SQ DAILY [facility] Last Admin: 08/05/17 09:31 Dose: 40 mg Polyethylene Glycol (Miralax (For Daily Use) -) 17 gm PO DAILY [facility] Last Admin: 08/05/17 09:34 Dose: 17 gm Sodium Chloride (Sodium Chloride Tablet -) 1 gm PO BID [facility] Last Admin: 08/05/17 09:32 Dose: 1 gm - Objective Vital Signs: Vital Signs Temperature 97.4 F L 08/05/17 09:00 Pulse Rate 84 08/05/17 09:00 Respiratory Rate 20 08/05/17 09:00 Blood Pressure 147/65 08/05/17 09:00 O2 Sat by Pulse Oximetry (%) 96 08/05/17 09:00 Constitutional: Yes: Calm Eyes: Yes: Conjunctiva Clear HENT: Yes: Atraumatic Cardiovascular: Yes: S1, S2 Respiratory: Yes: CTA Bilaterally Gastrointestinal: Yes: Soft Genitourinary: Yes: WNL Musculoskeletal: Yes: WNL Edema: No Neurological: Yes: Oriented Psychiatric: Yes: Oriented Labs: CBC, BMP 08/05/17 07:20 08/05/17 07:20 INR, PTT INR 0.93 (0.82-1.09) 07/29/17 10:25 - ....Imaging Chest X-ray: Report Reviewed Problem List - Problems (1) CAD (coronary artery disease) Code(s): I25.10 - ATHSCL HEART DISEASE OF [place] CORONARY ARTERY W/O ANG PCTRS (2) Decrease in appetite Code(s): R63.0 - ANOREXIA (3) HLD (hyperlipidemia) Code(s): E78.5 - HYPERLIPIDEMIA, UNSPECIFIED (4) HTN (hypertension) Code(s): I10 - ESSENTIAL (PRIMARY) HYPERTENSION (5) Hyponatremia Code(s): E87.1 - HYPO-OSMOLALITY AND HYPONATREMIA Assessment/Plan Current Medications Generic Name Dose Route Start Last Admin Trade Name Freq PRN Reason Stop Dose Admin Amlodipine Besylate 10 mg 07/29/17 12:30 08/05/17 09:31 Norvasc - PO 10 mg DAILY [facility] Administration Atorvastatin Calcium 10 mg 07/29/17 22:00 08/04/17 21:15 Lipitor - PO 10 mg HS [facility] Administration Clopidogrel Bisulfate 75 mg 07/30/17 10:00 08/05/17 09:31 Plavix - PO 75 mg DAILY [facility] Administration Docusate Sodium 100 mg 08/02/17 14:38 08/02/17 16:54 Colace - PO 100 mg Q12H PRN Administration CONSTIPATION Enoxaparin Sodium 40 mg 07/30/17 10:00 08/05/17 09:31 Lovenox - SQ 40 mg DAILY [facility] Administration Polyethylene Glycol 17 gm 08/03/17 10:00 08/05/17 09:34 Miralax (For Daily Use) - PO 17 gm DAILY [facility] Administration Sodium Chloride 1 gm 08/03/17 22:00 08/05/17 09:32 Sodium Chloride Tablet - PO 1 gm BID [facility] Administration Impression 1. hyponatremia - hypovolemic 2. Leukocytosis 3. HTN 4. HLD 5. PVD 6. GERD 7. anemia 8. pna vs influenza 9. pleural effusions Plan - sodium is worse today - hold lasix - follow up repeat urine studies - cxr reviewed - restrict free water to 800 cc - encourage PO intake
--- NOTE | 2017-08-05 12:17 | PN ---
Progress Note (short form) - Note Progress Note: Subjective: The patient was seen and examined at the bedside, he states he is able to swallow without any issues. He has no complaints at this time. Current Medications Generic Name Dose Route Start Last Admin Trade Name Freq PRN Reason Stop Dose Admin Amlodipine Besylate 10 mg 07/29/17 12:30 08/05/17 09:31 Norvasc - PO 10 mg DAILY [facility] Administration Atorvastatin Calcium 10 mg 07/29/17 22:00 08/04/17 21:15 Lipitor - PO 10 mg HS [facility] Administration Clopidogrel Bisulfate 75 mg 07/30/17 10:00 08/05/17 09:31 Plavix - PO 75 mg DAILY [facility] Administration Docusate Sodium 100 mg 08/02/17 14:38 08/02/17 16:54 Colace - PO 100 mg Q12H PRN Administration CONSTIPATION Enoxaparin Sodium 40 mg 07/30/17 10:00 08/05/17 09:31 Lovenox - SQ 40 mg DAILY [facility] Administration Polyethylene Glycol 17 gm 08/03/17 10:00 08/05/17 09:34 Miralax (For Daily Use) - PO 17 gm DAILY [facility] Administration Sodium Chloride 1 gm 08/03/17 22:00 08/05/17 09:32 Sodium Chloride Tablet - PO 1 gm BID [facility] Administration Objective: Vital Signs Period Temp Pulse Resp BP Sys/Macias Pulse Ox Last 24 Hr 97.4 F-97.9 F 75-90 18-20 131-158/65-77 95-96 Physical Exam: General: NAD Lungs: CTA bilaterally Heart: RRR, S1S2 Abd: Soft, non-tender, non-distended. Normoactive bowel sounds Ext: Warm, well-perfused. 2+ DP/PT bilaterally CBCD WBC 10.6 K/mm3 (4.0-10.0) H 08/05/17 07:20 RBC 3.94 M/mm3 (4.00-5.60) L 08/05/17 07:20 Hgb 12.0 GM/dL (11.7-16.9) 08/05/17 07:20 Hct 35.5 % (35.4-49) 08/05/17 07:20 MCV 90.1 fl (80-96) 08/05/17 07:20 MCHC 33.7 g/dl (32.0-35.9) 08/05/17 07:20 RDW 13.5 % (11.9-15.9) 08/05/17 07:20 Plt Count 477 K/MM3 (134-434) H 08/05/17 07:20 MPV 7.0 fl (7.5-11.1) L 08/05/17 07:20 CMP Sodium 125 mmol/L (136-145) L 08/05/17 07:20 Potassium 4.3 mmol/L (3.5-5.1) 08/05/17 07:20 Chloride 91 mmol/L (98-107) L 08/05/17 07:20 Carbon Dioxide 28 mmol/L (21-32) 08/05/17 07:20 Anion Gap 6 (8-16) L 08/05/17 07:20 BUN 12 mg/dL (7-18) D 08/05/17 07:20 Creatinine 0.5 mg/dL (0.7-1.3) L 08/05/17 07:20 Creat Clearance w eGFR > 60 (>60) 08/05/17 07:20 Random Glucose 88 mg/dL (74-106) 08/05/17 07:20 Calcium 7.2 mg/dL (8.5-10.1) L 08/05/17 07:20 Total Bilirubin 0.5 mg/dL (0.2-1.0) D 08/05/17 07:20 AST 27 U/L (15-37) D 08/05/17 07:20 ALT 32 U/L (12-78) D 08/05/17 07:20 Alkaline Phosphatase 78 U/L (45-117) 08/05/17 07:20 Total Protein 4.7 g/dl (6.4-8.2) L 08/05/17 07:20 Albumin 1.9 g/dl (3.4-5.0) L 08/05/17 07:20 CARDIAC ENZYMES Troponin I 0.02 ng/ml (0.00-0.05) 07/29/17 09:55 Microbiology 07/29/17 10:25 Blood - Peripheral Venous Blood Culture - Final NO GROWTH AFTER 5 DAYS INCUBATION 07/29/17 10:25 Blood - Peripheral Venous Blood Culture - Final NO GROWTH AFTER 5 DAYS INCUBATION 07/29/17 10:12 Throat Throat Culture - Final NO BETA HEMOLYTIC STREPTOCOCCI ISOLATED 07/29/17 10:12 Throat Group A Strep Rapid Antigen - Final 07/29/17 10:12 Nasopharyngeal Swab Influenza Types A,B Antigen (KAREEN) - Final 07/29/17 10:12 Nasopharyngeal Swab - Final Assessment: This is an 82 year old male with PMHx of HTN, hyperlipidemia, anemia , CAD, who presented to the ED with shortness of breath, weakness, cough, decreased appetite x5 days. Plan: 1) Severe hyponatremia: - Na 125 today - Continue salt tabs - Urine studies noted - Appreciate nephrology consult 2) Pleural effusions - S/p lasix - Chest X-ray today with right pleural effusion. Small left pleural effusion. No pneumothorax. No vascular congestive changes 3) Leukocytosis - Afebrile - Viral vs. pneumonia - Completed course of Ceftriaxone and Azithromycin - Influenza A&B negative - Throat culture negative 4) CAD - Continue Plavix - Continue Lipitor 5) HTN - Continue Norvasc 6) F/E/N: - Soft diet with thin liquids - Monitor electrolytes 7) Prophylaxis: - OOB ambulating - Lovenox 40mg sq daily 8) Dispo: - Requires continued inpatient care CODE STATUS: FULL CODE Visit type - Emergency Visit Emergency Visit: Yes ED Registration Date: 07/29/17 Care time: The patient presented to the Emergency Department on the above date and was hospitalized for further evaluation of their emergent condition. - New Patient This patient is new to me today: No - Critical Care Critical Care patient: No
--- NOTE | 2017-08-05 12:30 | PN ---
Progress Note, OUTREACH EDUCATOR - Note Progress Note: Selected Entries 08/04/17 08/04/17 08/04/17 06:23 09:00 14:00 Breakfast 50% Lunch 75% Supper Temperature 97.9 F 97.5 F L 97.6 F 08/04/17 08/04/17 08/04/17 17:32 21:00 21:51 Breakfast Lunch Supper 50% Temperature 97.9 F 97.8 F 08/05/17 08/05/17 05:20 09:00 Breakfast Lunch Supper Temperature 97.6 F 97.4 F L Laboratory Tests 08/04/17 08/05/17 06:35 07:20 WBC 9.8 10.6 H Pt on puree and thin liquid. Pt requesting diet upgrade. Suggest:soft, easy to chew foods Thin liquids ] (Pt is edentulous, and sdoes not use his dentures to eat.
[2017-08-05 15:13] LABS: URINE APPEARANCE CLEAR; URINE BILIRUBIN NEGATIVE (NEGATIVE); URINE BLOOD 1+ (NEGATIVE); URINE COLOR YELLOW; URINE GLUCOSE (UA) NEGATIVE (NEGATIVE); URINE KETONE NEGATIVE (NEGATIVE); URINE LEUK ESTERASE NEGATIVE (NEGATIVE); URINE NITRITE NEGATIVE (NEGATIVE); URINE UROBILINOGEN NEGATIVE mg/dL (0.2-1.0)
[2017-08-05 15:15] LABS: URINE PROTEIN 2+ (NEGATIVE)
[2017-08-05 15:33] LABS: URINE BACTERIA RARE /hpf (NONE SEEN)
[2017-08-05] MEDS: ATORVASTATIN CA 10 MG TABLET (FP) PO SCH (21:14)
[2017-08-06 08:45] LABS: HEMOGLOBIN 11.8 GM/dL (11.7-16.9); MCH 30.3 pg (25.7-33.7); MCHC 33.8 g/dl (32.0-35.9); MEAN CELL VOLUME 89.6 fl (80-96); MEAN PLT VOLUME 7.1 fl (7.5-11.1); PLATELET COUNT 475 K/MM3 (134-434); RBC 3.91 M/mm3 (4.00-5.60); RDW 13.3 % (11.9-15.9); WHITE BLOOD COUNT 10.2 K/mm3 (4.0-10.0)
[2017-08-06 09:12] LABS: ALBUMIN 1.9 g/dl (3.4-5.0); ANION GAP 7 (8-16); BLOOD UREA NITROGEN 14 mg/dL (7-18); CALCIUM 7.3 mg/dL (8.5-10.1); CHLORIDE 89 mmol/L (98-107); CO2 28 mmol/L (21-32); GLUCOSE,RANDOM 85 mg/dL (74-106); POTASSIUM 4.7 mmol/L (3.5-5.1)
[2017-08-06 09:16] LABS: ALK PHOS 75 U/L (45-117); BILIRUBIN,TOTAL 0.3 mg/dL (0.2-1.0); CREATININE 0.6 mg/dL (0.7-1.3); SGOT/AST 24 U/L (15-37); SGPT/ALT 31 U/L (12-78); TOT PROT 4.7 g/dl (6.4-8.2)
[2017-08-06 09:21] LABS: SODIUM 124 mmol/L (136-145)
[2017-08-06] MEDS ORDERED: PT OWN MED DRAWER 7, Y5N ONE ×2 (09:54→21:15)
[2017-08-06] MEDS: ENOXAPARIN NA (PORCINE) 40 MG/0.4 ML DISP.SYRIN SQ SCH (09:55)
[2017-08-06] MEDS: amLODIPine BESYLATE 10 MG TABLET (FP) PO SCH (09:55)
[2017-08-06] MEDS: CLOPIDOGREL BISULFATE 75 MG TABLET (FP) PO SCH (09:55)
[2017-08-06] MEDS: POLYETHYLENE GLYCOL 3350 119 GM BTL PO SCH (09:55)
[2017-08-06] MEDS: SODIUM CHLORIDE 1 GM TABLET PO SCH ×2 (09:56→21:26)
--- NOTE | 2017-08-06 10:51 | PN ---
Progress Note, SANDWICH ARTIST - Note Progress Note: Selected Entries 08/05/17 08/05/17 08/05/17 05:20 09:00 14:00 Breakfast 75% Lunch 75% Supper Temperature 97.6 F 97.4 F L 97.4 F L 08/05/17 08/05/17 08/06/17 18:00 22:00 06:00 Breakfast Lunch Supper 50% Temperature 97.8 F 97.3 F L 08/06/17 09:00 Breakfast Lunch Supper Temperature 97.5 F L Diet upgraded to soft consistency/thin liquids. Pt reports that he could not chew the chicken as it was "too dry." He did well with breakfast. Pt is o x3. He told me he feels like he is "going out of his mind." I reported this to his primary nurse. Sodium is low. Nephrology consulted. Laboratory Tests 08/01/17 08/02/17 08/03/17 07:15 07:40 06:00 Sodium 130 L 129 L 126 L 08/04/17 08/05/17 08/06/17 06:35 07:20 07:20 Sodium 127 L 125 L 124 L* Suggest Diet modification to soft, moist,easy to chew foods (No grilled chicken). with all meat chopped with gravy. RD f/u.
--- NOTE | 2017-08-06 11:16 | PN ---
Progress Note (short form) - Note Progress Note: Subjective: The patient was seen and examined at the bedside, he states he is able to swallow without any issues. He has no complaints at this time. Current Medications Generic Name Dose Route Start Last Admin Trade Name Freq PRN Reason Stop Dose Admin Amlodipine Besylate 10 mg 07/29/17 12:30 08/05/17 09:31 Norvasc - PO 10 mg DAILY [facility] Administration Atorvastatin Calcium 10 mg 07/29/17 22:00 08/04/17 21:15 Lipitor - PO 10 mg HS [facility] Administration Clopidogrel Bisulfate 75 mg 07/30/17 10:00 08/05/17 09:31 Plavix - PO 75 mg DAILY [facility] Administration Docusate Sodium 100 mg 08/02/17 14:38 08/02/17 16:54 Colace - PO 100 mg Q12H PRN Administration CONSTIPATION Enoxaparin Sodium 40 mg 07/30/17 10:00 08/05/17 09:31 Lovenox - SQ 40 mg DAILY [facility] Administration Polyethylene Glycol 17 gm 08/03/17 10:00 08/05/17 09:34 Miralax (For Daily Use) - PO 17 gm DAILY [facility] Administration Sodium Chloride 1 gm 08/03/17 22:00 08/05/17 09:32 Sodium Chloride Tablet - PO 1 gm BID [facility] Administration Objective: Vital Signs Period Temp Pulse Resp BP Sys/Macias Pulse Ox Last 24 Hr 97.4 F-97.9 F 75-90 18-20 131-158/65-77 95-96 Physical Exam: General: NAD Lungs: CTA bilaterally Heart: RRR, S1S2 Abd: Soft, non-tender, non-distended. Normoactive bowel sounds Ext: Warm, well-perfused. 2+ DP/PT bilaterally CBCD WBC 10.6 K/mm3 (4.0-10.0) H 08/05/17 07:20 RBC 3.94 M/mm3 (4.00-5.60) L 08/05/17 07:20 Hgb 12.0 GM/dL (11.7-16.9) 08/05/17 07:20 Hct 35.5 % (35.4-49) 08/05/17 07:20 MCV 90.1 fl (80-96) 08/05/17 07:20 MCHC 33.7 g/dl (32.0-35.9) 08/05/17 07:20 RDW 13.5 % (11.9-15.9) 08/05/17 07:20 Plt Count 477 K/MM3 (134-434) H 08/05/17 07:20 MPV 7.0 fl (7.5-11.1) L 08/05/17 07:20 CMP Sodium 125 mmol/L (136-145) L 08/05/17 07:20 Potassium 4.3 mmol/L (3.5-5.1) 08/05/17 07:20 Chloride 91 mmol/L (98-107) L 08/05/17 07:20 Carbon Dioxide 28 mmol/L (21-32) 08/05/17 07:20 Anion Gap 6 (8-16) L 08/05/17 07:20 BUN 12 mg/dL (7-18) D 08/05/17 07:20 Creatinine 0.5 mg/dL (0.7-1.3) L 08/05/17 07:20 Creat Clearance w eGFR > 60 (>60) 08/05/17 07:20 Random Glucose 88 mg/dL (74-106) 08/05/17 07:20 Calcium 7.2 mg/dL (8.5-10.1) L 08/05/17 07:20 Total Bilirubin 0.5 mg/dL (0.2-1.0) D 08/05/17 07:20 AST 27 U/L (15-37) D 08/05/17 07:20 ALT 32 U/L (12-78) D 08/05/17 07:20 Alkaline Phosphatase 78 U/L (45-117) 08/05/17 07:20 Total Protein 4.7 g/dl (6.4-8.2) L 08/05/17 07:20 Albumin 1.9 g/dl (3.4-5.0) L 08/05/17 07:20 CARDIAC ENZYMES Troponin I 0.02 ng/ml (0.00-0.05) 07/29/17 09:55 Microbiology 07/29/17 10:25 Blood - Peripheral Venous Blood Culture - Final NO GROWTH AFTER 5 DAYS INCUBATION 07/29/17 10:25 Blood - Peripheral Venous Blood Culture - Final NO GROWTH AFTER 5 DAYS INCUBATION 07/29/17 10:12 Throat Throat Culture - Final NO BETA HEMOLYTIC STREPTOCOCCI ISOLATED 07/29/17 10:12 Throat Group A Strep Rapid Antigen - Final 07/29/17 10:12 Nasopharyngeal Swab Influenza Types A,B Antigen (KAREEN) - Final 07/29/17 10:12 Nasopharyngeal Swab - Final Assessment: This is an 82 year old male with PMHx of HTN, hyperlipidemia, anemia , CAD, who presented to the ED with shortness of breath, weakness, cough, decreased appetite x5 days. Plan: 1) Severe hyponatremia: - Na 124 today - Continue salt tabs - Urine studies noted - Appreciate nephrology consult: f/u further recommendations for worsening sodium level 2) Pleural effusions - S/p lasix 08/04, appears euvolemic today will not give Lasix - Chest X-ray today with right pleural effusion. Small left pleural effusion. No pneumothorax. No vascular congestive changes 3) Leukocytosis - Improving - Afebrile - Viral vs. pneumonia - Completed course of Ceftriaxone and Azithromycin - Influenza A&B negative - Throat culture negative 4) CAD - Continue Plavix - Continue Lipitor 5) HTN - Continue Norvasc 6) F/E/N: - Soft diet with thin liquids - Monitor electrolytes 7) Prophylaxis: - OOB ambulating - Lovenox 40mg sq daily 8) Dispo: - Requires continued inpatient care CODE STATUS: FULL CODE Visit type - Emergency Visit Emergency Visit: Yes ED Registration Date: 07/29/17 Care time: The patient presented to the Emergency Department on the above date and was hospitalized for further evaluation of their emergent condition. - New Patient This patient is new to me today: No - Critical Care Critical Care patient: No
--- NOTE | 2017-08-06 17:05 | PN ---
Progress Note, Physician History of Present Illness: Pt seen and examined at bedside. He is awake and alert. He complains of lower extremity edema. - Current Medication List Current Medications: Active Medications Amlodipine Besylate (Norvasc -) 10 mg PO DAILY [facility] Last Admin: 08/06/17 09:55 Dose: 10 mg Atorvastatin Calcium (Lipitor -) 10 mg PO HS [facility] Last Admin: 08/05/17 21:14 Dose: 10 mg Clopidogrel Bisulfate (Plavix -) 75 mg PO DAILY [facility] Last Admin: 08/06/17 09:55 Dose: 75 mg Docusate Sodium (Colace -) 100 mg PO Q12H PRN PRN Reason: CONSTIPATION Last Admin: 08/02/17 16:54 Dose: 100 mg Enoxaparin Sodium (Lovenox -) 40 mg SQ DAILY [facility] Last Admin: 08/06/17 09:55 Dose: 40 mg Polyethylene Glycol (Miralax (For Daily Use) -) 17 gm PO DAILY [facility] Last Admin: 08/06/17 09:55 Dose: 17 gm Sodium Chloride (Sodium Chloride Tablet -) 1 gm PO BID [facility] Last Admin: 08/06/17 09:56 Dose: 1 gm - Objective Vital Signs: Vital Signs Temperature 97.6 F 08/06/17 14:00 Pulse Rate 82 08/06/17 14:00 Respiratory Rate 20 08/06/17 14:00 Blood Pressure 124/52 08/06/17 14:00 O2 Sat by Pulse Oximetry (%) 92 L 08/06/17 09:00 Constitutional: Yes: Calm Eyes: Yes: Conjunctiva Clear HENT: Yes: Atraumatic Cardiovascular: Yes: S1, S2 Respiratory: Yes: Rhonchi Gastrointestinal: Yes: Soft Genitourinary: Yes: WNL Musculoskeletal: Yes: WNL Edema: Yes Edema: LLE: 1+, RLE: 1+ Neurological: Yes: Oriented Psychiatric: Yes: Oriented Labs: CBC, BMP 08/06/17 07:20 08/06/17 07:20 INR, PTT INR 0.93 (0.82-1.09) 07/29/17 10:25 Problem List - Problems (1) CAD (coronary artery disease) Code(s): I25.10 - ATHSCL HEART DISEASE OF [place] CORONARY ARTERY W/O ANG PCTRS (2) Decrease in appetite Code(s): R63.0 - ANOREXIA (3) HLD (hyperlipidemia) Code(s): E78.5 - HYPERLIPIDEMIA, UNSPECIFIED (4) HTN (hypertension) Code(s): I10 - ESSENTIAL (PRIMARY) HYPERTENSION (5) Hyponatremia Code(s): E87.1 - HYPO-OSMOLALITY AND HYPONATREMIA Assessment/Plan Current Medications Generic Name Dose Route Start Last Admin Trade Name Freq PRN Reason Stop Dose Admin Amlodipine Besylate 10 mg 07/29/17 12:30 08/06/17 09:55 Norvasc - PO 10 mg DAILY [facility] Administration Atorvastatin Calcium 10 mg 07/29/17 22:00 08/05/17 21:14 Lipitor - PO 10 mg HS [facility] Administration Clopidogrel Bisulfate 75 mg 07/30/17 10:00 08/06/17 09:55 Plavix - PO 75 mg DAILY [facility] Administration Docusate Sodium 100 mg 08/02/17 14:38 08/02/17 16:54 Colace - PO 100 mg Q12H PRN Administration CONSTIPATION Enoxaparin Sodium 40 mg 07/30/17 10:00 08/06/17 09:55 Lovenox - SQ 40 mg DAILY [facility] Administration Polyethylene Glycol 17 gm 08/03/17 10:00 08/06/17 09:55 Miralax (For Daily Use) - PO 17 gm DAILY [facility] Administration Sodium Chloride 1 gm 08/03/17 22:00 08/06/17 09:56 Sodium Chloride Tablet - PO 1 gm BID [facility] Administration Laboratory Tests 07/29/17 07/30/17 08/05/17 12:55 08:00 14:45 Cortisol AM Sample 21.0 22.1 Ur Random Sodium 23 Impression 1. hyponatremia - hypovolemic 2. Leukocytosis 3. HTN 4. HLD 5. PVD 6. GERD 7. anemia 8. pna vs influenza 9. pleural effusions Plan - will give a dose of lasix - repeat labs in am - encourage PO intake - urine sodium is not consistent with siadh - restrict free water to [address] Lacey
[2017-08-06] MEDS ORDERED: FUROSEMIDE 40 MG/4 ML INJECTABLE VIAL IVPUSH ONE (17:15)
[2017-08-06] MEDS: ATORVASTATIN CA 10 MG TABLET (FP) PO SCH (21:26)
[2017-08-07] MEDS ORDERED: PT OWN MED DRAWER 7, Y5N ONE ×2 (07:00→09:57)
[2017-08-07 08:56] LABS: ALBUMIN 2.2 g/dl (3.4-5.0); ANION GAP 8 (8-16); BLOOD UREA NITROGEN 17 mg/dL (7-18); CALCIUM 8.2 mg/dL (8.5-10.1); CHLORIDE 87 mmol/L (98-107); CO2 29 mmol/L (21-32); GLUCOSE,RANDOM 84 mg/dL (74-106); POTASSIUM 4.8 mmol/L (3.5-5.1)
[2017-08-07 09:02] LABS: ALK PHOS 89 U/L (45-117); BILIRUBIN,TOTAL 0.5 mg/dL (0.2-1.0); CREATININE 0.7 mg/dL (0.7-1.3); SGOT/AST 28 U/L (15-37); SGPT/ALT 33 U/L (12-78); TOT PROT 5.6 g/dl (6.4-8.2)
--- NOTE | 2017-08-07 09:54 | PN ---
Progress Note (short form) - Note Progress Note: Subjective: The patient was seen and examined at the bedside, he states he has polish toast for breakfast and states he vomited after eating. The patient is refusing to use dentures while eating and is therefore not chewing his food. Vomitus was undigested large bites of food. Will place on pureed diet Current Medications Generic Name Dose Route Start Last Admin Trade Name Freq PRN Reason Stop Dose Admin Amlodipine Besylate 10 mg 07/29/17 12:30 08/06/17 09:55 Norvasc - PO 10 mg DAILY [facility] Administration Atorvastatin Calcium 10 mg 07/29/17 22:00 08/06/17 21:26 Lipitor - PO 10 mg HS [facility] Administration Clopidogrel Bisulfate 75 mg 07/30/17 10:00 08/06/17 09:55 Plavix - PO 75 mg DAILY [facility] Administration Docusate Sodium 100 mg 08/02/17 14:38 08/02/17 16:54 Colace - PO 100 mg Q12H PRN Administration CONSTIPATION Enoxaparin Sodium 40 mg 07/30/17 10:00 08/06/17 09:55 Lovenox - SQ 40 mg DAILY [facility] Administration Polyethylene Glycol 17 gm 08/03/17 10:00 08/06/17 09:55 Miralax (For Daily Use) - PO 17 gm DAILY [facility] Administration Sodium Chloride 1 gm 08/03/17 22:00 08/06/17 21:26 Sodium Chloride Tablet - PO 1 gm BID [facility] Administration Objective: Vital Signs Period Temp Pulse Resp BP Sys/Macias Pulse Ox Last 24 Hr 97.6 F-98.7 F 73-82 20-20 124-139/52-64 94 Physical Exam: General: NAD Lungs: CTA bilaterally Heart: RRR, S1S2 Abd: Soft, non-tender, non-distended. Normoactive bowel sounds Ext: Warm, well-perfused. 2+ DP/PT bilaterally CBCD WBC 10.2 K/mm3 (4.0-10.0) H 08/06/17 07:20 RBC 3.91 M/mm3 (4.00-5.60) L 08/06/17 07:20 Hgb 11.8 GM/dL (11.7-16.9) 08/06/17 07:20 Hct 35.0 % (35.4-49) L 08/06/17 07:20 MCV 89.6 fl (80-96) 08/06/17 07:20 MCHC 33.8 g/dl (32.0-35.9) 08/06/17 07:20 RDW 13.3 % (11.9-15.9) 08/06/17 07:20 Plt Count 475 K/MM3 (134-434) H 08/06/17 07:20 MPV 7.1 fl (7.5-11.1) L 08/06/17 07:20 CMP Sodium 124 mmol/L (136-145) L* 08/06/17 07:20 Potassium 4.8 mmol/L (3.5-5.1) 08/07/17 07:30 Chloride 87 mmol/L (98-107) L 08/07/17 07:30 Carbon Dioxide 29 mmol/L (21-32) 08/07/17 07:30 Anion Gap 8 (8-16) 08/07/17 07:30 BUN 17 mg/dL (7-18) D 08/07/17 07:30 Creatinine 0.7 mg/dL (0.7-1.3) 08/07/17 07:30 Creat Clearance w eGFR > 60 (>60) 08/07/17 07:30 Calcium 8.2 mg/dL (8.5-10.1) L 08/07/17 07:30 Total Bilirubin 0.5 mg/dL (0.2-1.0) D 08/07/17 07:30 AST 28 U/L (15-37) 08/07/17 07:30 ALT 33 U/L (12-78) 08/07/17 07:30 Alkaline Phosphatase 89 U/L (45-117) 08/07/17 07:30 Total Protein 5.6 g/dl (6.4-8.2) L 08/07/17 07:30 Albumin 2.2 g/dl (3.4-5.0) L 08/07/17 07:30 Microbiology 07/29/17 10:25 Blood - Peripheral Venous Blood Culture - Final NO GROWTH AFTER 5 DAYS INCUBATION 07/29/17 10:25 Blood - Peripheral Venous Blood Culture - Final NO GROWTH AFTER 5 DAYS INCUBATION 07/29/17 10:12 Throat Throat Culture - Final NO BETA HEMOLYTIC STREPTOCOCCI ISOLATED 07/29/17 10:12 Throat Group A Strep Rapid Antigen - Final 07/29/17 10:12 Nasopharyngeal Swab Influenza Types A,B Antigen (KAREEN) - Final 07/29/17 10:12 Nasopharyngeal Swab - Final Assessment: This is an 82 year old male with PMHx of HTN, hyperlipidemia, anemia , CAD, who presented to the ED with shortness of breath, weakness, cough, decreased appetite x5 days. Plan: 1) Severe hyponatremia: - Na 124 yesterday, awaiting level today - Continue salt tabs - Urine studies noted - Appreciate nephrology consult 2) Pleural effusions - S/p lasix yesterday, continue per nephro - Chest X-ray 08/05 with right pleural effusion. Small left pleural effusion. No pneumothorax. No vascular congestive changes 3) Leukocytosis - Afebrile - Viral vs. pneumonia - Completed course of Ceftriaxone and Azithromycin - Influenza A&B negative - Throat culture negative 4) CAD - Continue Plavix - Continue Lipitor 5) HTN - Continue Norvasc 6) F/E/N: - Pureed diet as above - Monitor electrolytes 7) Prophylaxis: - OOB ambulating - Lovenox 40mg sq daily 8) Dispo: - Requires continued inpatient care CODE STATUS: FULL CODE Visit type - Emergency Visit Emergency Visit: Yes ED Registration Date: 07/29/17 Care time: The patient presented to the Emergency Department on the above date and was hospitalized for further evaluation of their emergent condition. - New Patient This patient is new to me today: No - Critical Care Critical Care patient: No
[2017-08-07] MEDS: ENOXAPARIN NA (PORCINE) 40 MG/0.4 ML DISP.SYRIN SQ SCH (10:00)
[2017-08-07] MEDS: CLOPIDOGREL BISULFATE 75 MG TABLET (FP) PO SCH (10:00)
[2017-08-07] MEDS: amLODIPine BESYLATE 10 MG TABLET (FP) PO SCH (10:00)
[2017-08-07] MEDS: POLYETHYLENE GLYCOL 3350 119 GM BTL PO SCH (10:01)
[2017-08-07] MEDS: SODIUM CHLORIDE 1 GM TABLET PO SCH ×2 (10:01→21:28)
[2017-08-07 10:54] LABS: SODIUM 124 mmol/L (136-145)
[2017-08-07] MEDS ORDERED: FUROSEMIDE 40 MG/4 ML INJECTABLE VIAL IVPUSH ONE (15:38)
--- NOTE | 2017-08-07 15:38 | PN ---
Progress Note, Physician History of Present Illness: Pt seen and examined at bedside. He complains of lower extremity edema. - Current Medication List Current Medications: Active Medications Amlodipine Besylate (Norvasc -) 10 mg PO DAILY [facility] Last Admin: 08/07/17 10:00 Dose: 10 mg Atorvastatin Calcium (Lipitor -) 10 mg PO HS [facility] Last Admin: 08/06/17 21:26 Dose: 10 mg Clopidogrel Bisulfate (Plavix -) 75 mg PO DAILY [facility] Last Admin: 08/07/17 10:00 Dose: 75 mg Docusate Sodium (Colace -) 100 mg PO Q12H PRN PRN Reason: CONSTIPATION Last Admin: 08/02/17 16:54 Dose: 100 mg Enoxaparin Sodium (Lovenox -) 40 mg SQ DAILY [facility] Last Admin: 08/07/17 10:00 Dose: 40 mg Polyethylene Glycol (Miralax (For Daily Use) -) 17 gm PO DAILY [facility] Last Admin: 08/07/17 10:01 Dose: 17 gm Sodium Chloride (Sodium Chloride Tablet -) 1 gm PO BID [facility] Last Admin: 08/07/17 10:01 Dose: 1 gm - Objective Vital Signs: Vital Signs Temperature 97.5 F L 08/07/17 15:05 Pulse Rate 77 08/07/17 15:05 Respiratory Rate 20 08/07/17 15:05 Blood Pressure 143/54 08/07/17 15:05 O2 Sat by Pulse Oximetry (%) 94 L 08/06/17 21:00 Constitutional: Yes: Calm Eyes: Yes: Conjunctiva Clear HENT: Yes: Atraumatic Neck: Yes: Supple Cardiovascular: Yes: S1, S2 Respiratory: Yes: Rhonchi Gastrointestinal: Yes: Soft Genitourinary: Yes: WNL Musculoskeletal: Yes: WNL Edema: Yes Edema: LLE: 1+, RLE: 1+ Neurological: Yes: Oriented Psychiatric: Yes: Oriented Labs: CBC, BMP 08/06/17 07:20 08/07/17 07:30 INR, PTT INR 0.93 (0.82-1.09) 07/29/17 10:25 Problem List - Problems (1) CAD (coronary artery disease) Code(s): I25.10 - ATHSCL HEART DISEASE OF [place] CORONARY ARTERY W/O ANG PCTRS (2) Decrease in appetite Code(s): R63.0 - ANOREXIA (3) HLD (hyperlipidemia) Code(s): E78.5 - HYPERLIPIDEMIA, UNSPECIFIED (4) HTN (hypertension) Code(s): I10 - ESSENTIAL (PRIMARY) HYPERTENSION (5) Hyponatremia Code(s): E87.1 - HYPO-OSMOLALITY AND HYPONATREMIA Assessment/Plan Current Medications Generic Name Dose Route Start Last Admin Trade Name Freq PRN Reason Stop Dose Admin Amlodipine Besylate 10 mg 07/29/17 12:30 08/07/17 10:00 Norvasc - PO 10 mg DAILY NARINDER Administration Atorvastatin Calcium 10 mg 07/29/17 22:00 08/06/17 21:26 Lipitor - PO 10 mg HS NARINDER Administration Clopidogrel Bisulfate 75 mg 07/30/17 10:00 08/07/17 10:00 Plavix - PO 75 mg DAILY NARINDER Administration Docusate Sodium 100 mg 08/02/17 14:38 08/02/17 16:54 Colace - PO 100 mg Q12H PRN Administration CONSTIPATION Enoxaparin Sodium 40 mg 07/30/17 10:00 08/07/17 10:00 Lovenox - SQ 40 mg DAILY NARINDER Administration Polyethylene Glycol 17 gm 08/03/17 10:00 08/07/17 10:01 Miralax (For Daily Use) - PO 17 gm DAILY NARINDER Administration Sodium Chloride 1 gm 08/03/17 22:00 08/07/17 10:01 Sodium Chloride Tablet - PO 1 gm BID NARINDER Administration Impression 1. hyponatremia - hypovolemic 2. Leukocytosis 3. HTN 4. HLD 5. PVD 6. GERD 7. anemia 8. pna vs influenza 9. pleural effusions Plan - will diurese - repeat labs in am - restrict free water - encourage PO intake - urine sodium is not consistent with siadh Dr Lacey
[2017-08-07] MEDS: ATORVASTATIN CA 10 MG TABLET (FP) PO SCH (21:28)
[2017-08-08 08:26] LABS: ALBUMIN 1.9 g/dl (3.4-5.0); ALK PHOS 73 U/L (45-117); ANION GAP 7 (8-16); BILIRUBIN,TOTAL 0.5 mg/dL (0.2-1.0); BLOOD UREA NITROGEN 19 mg/dL (7-18); CALCIUM 7.4 mg/dL (8.5-10.1); CHLORIDE 92 mmol/L (98-107); CO2 29 mmol/L (21-32); CREATININE 0.6 mg/dL (0.7-1.3); GLUCOSE,RANDOM 78 mg/dL (74-106); POTASSIUM 4.6 mmol/L (3.5-5.1); SGOT/AST 23 U/L (15-37); SGPT/ALT 27 U/L (12-78); SODIUM 128 mmol/L (136-145); TOT PROT 4.7 g/dl (6.4-8.2)
[2017-08-08] MEDS ORDERED: FUROSEMIDE 40 MG/4 ML INJECTABLE VIAL IVPUSH ONE (09:18)
[2017-08-08] MEDS: POLYETHYLENE GLYCOL 3350 119 GM BTL PO SCH (09:32)
[2017-08-08] MEDS: ENOXAPARIN NA (PORCINE) 40 MG/0.4 ML DISP.SYRIN SQ SCH (09:32)
[2017-08-08] MEDS: amLODIPine BESYLATE 10 MG TABLET (FP) PO SCH (09:33)
[2017-08-08] MEDS: CLOPIDOGREL BISULFATE 75 MG TABLET (FP) PO SCH (09:33)
[2017-08-08] MEDS: SODIUM CHLORIDE 1 GM TABLET PO SCH ×2 (09:33→21:39)
[2017-08-08] MEDS ORDERED: FUROSEMIDE 40 MG TABLET (FP) PO ONE (17:58)
--- NOTE | 2017-08-08 18:00 | PN ---
Progress Note, Physician History of Present Illness: Pt seen and examined at bedside. He feels that his lower extremity edema is starting to improve. - Current Medication List Current Medications: Active Medications Amlodipine Besylate (Norvasc -) 10 mg PO DAILY [facility] Last Admin: 08/08/17 09:33 Dose: 10 mg Atorvastatin Calcium (Lipitor -) 10 mg PO HS [facility] Last Admin: 08/07/17 21:28 Dose: 10 mg Clopidogrel Bisulfate (Plavix -) 75 mg PO DAILY [facility] Last Admin: 08/08/17 09:33 Dose: 75 mg Docusate Sodium (Colace -) 100 mg PO Q12H PRN PRN Reason: CONSTIPATION Last Admin: 08/02/17 16:54 Dose: 100 mg Enoxaparin Sodium (Lovenox -) 40 mg SQ DAILY [facility] Last Admin: 08/08/17 09:32 Dose: 40 mg Polyethylene Glycol (Miralax (For Daily Use) -) 17 gm PO DAILY [facility] Last Admin: 08/08/17 09:32 Dose: 17 gm Sodium Chloride (Sodium Chloride Tablet -) 1 gm PO BID [facility] Last Admin: 08/08/17 09:33 Dose: 1 gm - Objective Vital Signs: Vital Signs Temperature 99.1 F 08/08/17 14:40 Pulse Rate 81 08/08/17 14:40 Respiratory Rate 20 08/08/17 14:40 Blood Pressure 135/54 08/08/17 14:40 O2 Sat by Pulse Oximetry (%) 91 L 08/08/17 08:00 Constitutional: Yes: Calm Eyes: Yes: Conjunctiva Clear HENT: Yes: Atraumatic Neck: Yes: Supple Cardiovascular: Yes: S1, S2 Respiratory: Yes: CTA Bilaterally Gastrointestinal: Yes: Soft Genitourinary: Yes: WNL Musculoskeletal: Yes: WNL Edema: Yes Edema: LLE: 1+, RLE: 1+ Neurological: Yes: Oriented Psychiatric: Yes: Oriented Labs: CBC, BMP 08/06/17 07:20 08/08/17 07:00 INR, PTT INR 0.93 (0.82-1.09) 07/29/17 10:25 Problem List - Problems (1) CAD (coronary artery disease) Code(s): I25.10 - ATHSCL HEART DISEASE OF [place] CORONARY ARTERY W/O ANG PCTRS (2) Decrease in appetite Code(s): R63.0 - ANOREXIA (3) HLD (hyperlipidemia) Code(s): E78.5 - HYPERLIPIDEMIA, UNSPECIFIED (4) HTN (hypertension) Code(s): I10 - ESSENTIAL (PRIMARY) HYPERTENSION (5) Hyponatremia Code(s): E87.1 - HYPO-OSMOLALITY AND HYPONATREMIA Assessment/Plan Current Medications Generic Name Dose Route Start Last Admin Trade Name Freq PRN Reason Stop Dose Admin Amlodipine Besylate 10 mg 07/29/17 12:30 08/08/17 09:33 Norvasc - PO 10 mg DAILY N[facility]INDER Administration Atorvastatin Calcium 10 mg 07/29/17 22:00 08/07/17 21:28 Lipitor - PO 10 mg HS NARINDER Administration Clopidogrel Bisulfate 75 mg 07/30/17 10:00 08/08/17 09:33 Plavix - PO 75 mg DAILY NARINDER Administration Docusate Sodium 100 mg 08/02/17 14:38 08/02/17 16:54 Colace - PO 100 mg Q12H PRN Administration CONSTIPATION Enoxaparin Sodium 40 mg 07/30/17 10:00 08/08/17 09:32 Lovenox - SQ 40 mg DAILY N[facility]INDER Administration Furosemide 40 mg 08/08/17 17:58 Lasix - PO 08/08/17 17:59 ONCE ONE Polyethylene Glycol 17 gm 08/03/17 10:00 08/08/17 09:32 Miralax (For Daily Use) - PO 17 gm DAILY NARINDER Administration Sodium Chloride 1 gm 08/03/17 22:00 08/08/17 09:33 Sodium Chloride Tablet - PO 1 gm BID NARINDER Administration Impression 1. hyponatremia 2. Leukocytosis 3. HTN 4. HLD 5. PVD 6. GERD 7. anemia 8. pna vs influenza 9. pleural effusions Plan - will give another dose of lasix - repeat labs in am - sodium is improving - urine sodium is not consistent with siadh Dr Lacey
[2017-08-08] MEDS: ATORVASTATIN CA 10 MG TABLET (FP) PO SCH (21:39)
[2017-08-09 08:19] LABS: HEMATOCRIT 31.3 % (35.4-49); HEMOGLOBIN 10.5 GM/dL (11.7-16.9); MCH 30.5 pg (25.7-33.7); MCHC 33.6 g/dl (32.0-35.9); MEAN CELL VOLUME 90.9 fl (80-96); MEAN PLT VOLUME 6.9 fl (7.5-11.1); PLATELET COUNT 488 K/MM3 (134-434); RBC 3.45 M/mm3 (4.00-5.60); RDW 13.8 % (11.9-15.9); WHITE BLOOD COUNT 7.8 K/mm3 (4.0-10.0)
[2017-08-09 08:40] LABS: ANION GAP 6 (8-16); BLOOD UREA NITROGEN 22 mg/dL (7-18); CALCIUM 7.7 mg/dL (8.5-10.1); CHLORIDE 94 mmol/L (98-107); CO2 31 mmol/L (21-32); CREATININE 0.7 mg/dL (0.7-1.3); GLUCOSE,RANDOM 85 mg/dL (74-106); POTASSIUM 4.6 mmol/L (3.5-5.1); SODIUM 131 mmol/L (136-145)
--- NOTE | 2017-08-09 09:05 | PN ---
Progress Note (short form) - Note Progress Note: Subjective: The patient was seen and examined at the bedside, he states he is feeling much better today, he denies any nausea or vomiting. He is tolerating his diet well Current Medications Generic Name Dose Route Start Last Admin Trade Name Freq PRN Reason Stop Dose Admin Amlodipine Besylate 10 mg 07/29/17 12:30 08/06/17 09:55 Norvasc - PO 10 mg DAILY N[facility]INDER Administration Atorvastatin Calcium 10 mg 07/29/17 22:00 08/06/17 21:26 Lipitor - PO 10 mg HS NARINDER Administration Clopidogrel Bisulfate 75 mg 07/30/17 10:00 08/06/17 09:55 Plavix - PO 75 mg DAILY NARINDER Administration Docusate Sodium 100 mg 08/02/17 14:38 08/02/17 16:54 Colace - PO 100 mg Q12H PRN Administration CONSTIPATION Enoxaparin Sodium 40 mg 07/30/17 10:00 08/06/17 09:55 Lovenox - SQ 40 mg DAILY NARINDER Administration Polyethylene Glycol 17 gm 08/03/17 10:00 08/06/17 09:55 Miralax (For Daily Use) - PO 17 gm DAILY NARINDER Administration Sodium Chloride 1 gm 08/03/17 22:00 08/06/17 21:26 Sodium Chloride Tablet - PO 1 gm BID NARINDER Administration Objective: Vital Signs Period Temp Pulse Resp BP Sys/Macias Pulse Ox Last 24 Hr 97.6 F-98.7 F 73-82 20-20 124-139/52-64 94 Physical Exam: General: NAD Lungs: CTA bilaterally Heart: RRR, S1S2 Abd: Soft, non-tender, non-distended. Normoactive bowel sounds Ext: Warm, well-perfused. 2+ DP/PT bilaterally. B/l lower extremity 2+ pitting edema CBCD WBC 10.2 K/mm3 (4.0-10.0) H 08/06/17 07:20 RBC 3.91 M/mm3 (4.00-5.60) L 08/06/17 07:20 Hgb 11.8 GM/dL (11.7-16.9) 08/06/17 07:20 Hct 35.0 % (35.4-49) L 08/06/17 07:20 MCV 89.6 fl (80-96) 08/06/17 07:20 MCHC 33.8 g/dl (32.0-35.9) 08/06/17 07:20 RDW 13.3 % (11.9-15.9) 08/06/17 07:20 Plt Count 475 K/MM3 (134-434) H 08/06/17 07:20 MPV 7.1 fl (7.5-11.1) L 08/06/17 07:20 CMP Sodium 128 mmol/L (136-145) L 08/08/17 07:00 Potassium 4.6 mmol/L (3.5-5.1) 08/08/17 07:00 Chloride 92 mmol/L (98-107) L 08/08/17 07:00 Carbon Dioxide 29 mmol/L (21-32) 08/08/17 07:00 Anion Gap 7 (8-16) L 08/08/17 07:00 BUN 19 mg/dL (7-18) H 08/08/17 07:00 Creatinine 0.6 mg/dL (0.7-1.3) L 08/08/17 07:00 Creat Clearance w eGFR > 60 (>60) 08/08/17 07:00 Random Glucose 78 mg/dL (74-106) 08/08/17 07:00 Calcium 7.4 mg/dL (8.5-10.1) L 08/08/17 07:00 Total Bilirubin 0.5 mg/dL (0.2-1.0) 08/08/17 07:00 AST 23 U/L (15-37) 08/08/17 07:00 ALT 27 U/L (12-78) 08/08/17 07:00 Alkaline Phosphatase 73 U/L (45-117) 08/08/17 07:00 Total Protein 4.7 g/dl (6.4-8.2) L 08/08/17 07:00 Albumin 1.9 g/dl (3.4-5.0) L 08/08/17 07:00 CARDIAC ENZYMES Troponin I 0.02 ng/ml (0.00-0.05) 07/29/17 09:55 Microbiology 07/29/17 10:25 Blood - Peripheral Venous Blood Culture - Final NO GROWTH AFTER 5 DAYS INCUBATION 07/29/17 10:25 Blood - Peripheral Venous Blood Culture - Final NO GROWTH AFTER 5 DAYS INCUBATION 07/29/17 10:12 Throat Throat Culture - Final NO BETA HEMOLYTIC STREPTOCOCCI ISOLATED 07/29/17 10:12 Throat Group A Strep Rapid Antigen - Final 07/29/17 10:12 Nasopharyngeal Swab Influenza Types A,B Antigen (KAREEN) - Final 07/29/17 10:12 Nasopharyngeal Swab - Final Assessment: This is an 82 year old male with PMHx of HTN, hyperlipidemia, anemia , CAD, who presented to the ED with shortness of breath, weakness, cough, decreased appetite x5 days. Plan: 1) Severe hyponatremia: - Continue to improve, 131 today - Continue fluid restriction - Continue Lasix - Continue salt tabs - Urine studies noted - Appreciate nephrology consult 2) Pleural effusions - Continue Lasix - Chest X-ray 08/05 with right pleural effusion. Small left pleural effusion. No pneumothorax. No vascular congestive changes 3) Leukocytosis - Afebrile - Viral vs. pneumonia - Completed course of Ceftriaxone and Azithromycin - Influenza A&B negative - Throat culture negative 4) CAD - Continue Plavix - Continue Lipitor 5) HTN - Continue Norvasc 6) F/E/N: - Pureed diet as above - Monitor electrolytes 7) Prophylaxis: - OOB ambulating - Lovenox 40mg sq daily 8) Dispo: - Requires continued inpatient care CODE STATUS: FULL CODE Visit type - Emergency Visit Emergency Visit: Yes ED Registration Date: 07/29/17 Care time: The patient presented to the Emergency Department on the above date and was hospitalized for further evaluation of their emergent condition. - New Patient This patient is new to me today: No - Critical Care Critical Care patient: No
[2017-08-09] MEDS ORDERED: FUROSEMIDE 40 MG/4 ML INJECTABLE VIAL IVPUSH ONE ×2 (09:15→18:30)
[2017-08-09] MEDS ORDERED: PT OWN MED DRAWER 7, Y5N ONE (09:32)
[2017-08-09] MEDS: ENOXAPARIN NA (PORCINE) 40 MG/0.4 ML DISP.SYRIN SQ SCH (09:33)
[2017-08-09] MEDS: CLOPIDOGREL BISULFATE 75 MG TABLET (FP) PO SCH (09:33)
[2017-08-09] MEDS: amLODIPine BESYLATE 10 MG TABLET (FP) PO SCH (09:33)
[2017-08-09] MEDS: SODIUM CHLORIDE 1 GM TABLET PO SCH (09:34)
[2017-08-09] MEDS: POLYETHYLENE GLYCOL 3350 119 GM BTL PO SCH (09:34)
[2017-08-09] MEDS ORDERED: FUROSEMIDE 40 MG TABLET (FP) PO ONE (18:28)
--- NOTE | 2017-08-09 18:28 | PN ---
Progress Note, Physician History of Present Illness: Pt seen and examined at bedside. He feels lower extremity edema is improving. - Current Medication List Current Medications: Active Medications Amlodipine Besylate (Norvasc -) 10 mg PO DAILY [facility] Last Admin: 08/09/17 09:33 Dose: 10 mg Atorvastatin Calcium (Lipitor -) 10 mg PO HS [facility] Last Admin: 08/08/17 21:39 Dose: 10 mg Clopidogrel Bisulfate (Plavix -) 75 mg PO DAILY [facility] Last Admin: 08/09/17 09:33 Dose: 75 mg Docusate Sodium (Colace -) 100 mg PO Q12H PRN PRN Reason: CONSTIPATION Last Admin: 08/02/17 16:54 Dose: 100 mg Enoxaparin Sodium (Lovenox -) 40 mg SQ DAILY [facility] Last Admin: 08/09/17 09:33 Dose: 40 mg Furosemide (Lasix Injection -) 40 mg IVPUSH ONCE ONE Stop: 08/09/17 18:24 Polyethylene Glycol (Miralax (For Daily Use) -) 17 gm PO DAILY [facility] Last Admin: 08/09/17 09:34 Dose: 17 gm Sodium Chloride (Sodium Chloride Tablet -) 1 gm PO BID [facility] Last Admin: 08/09/17 09:34 Dose: 1 gm - Objective Vital Signs: Vital Signs Temperature 98.5 F 08/09/17 14:58 Pulse Rate 74 08/09/17 14:58 Respiratory Rate 16 08/09/17 14:58 Blood Pressure 135/54 08/09/17 14:58 O2 Sat by Pulse Oximetry (%) 94 L 08/09/17 08:23 Constitutional: Yes: Calm Eyes: Yes: Conjunctiva Clear HENT: Yes: Atraumatic Cardiovascular: Yes: S1, S2 Respiratory: Yes: CTA Bilaterally Gastrointestinal: Yes: Soft Genitourinary: Yes: WNL Musculoskeletal: Yes: WNL Edema: Yes Edema: LLE: 1+, RLE: 1+ Neurological: Yes: Oriented Psychiatric: Yes: Oriented Labs: CBC, BMP 08/09/17 07:15 08/09/17 07:15 INR, PTT INR 0.93 (0.82-1.09) 07/29/17 10:25 Problem List - Problems (1) CAD (coronary artery disease) Code(s): I25.10 - ATHSCL HEART DISEASE OF [place] CORONARY ARTERY W/O ANG PCTRS (2) Decrease in appetite Code(s): R63.0 - ANOREXIA (3) HLD (hyperlipidemia) Code(s): E78.5 - HYPERLIPIDEMIA, UNSPECIFIED (4) HTN (hypertension) Code(s): I10 - ESSENTIAL (PRIMARY) HYPERTENSION (5) Hyponatremia Code(s): E87.1 - HYPO-OSMOLALITY AND HYPONATREMIA Assessment/Plan Current Medications Generic Name Dose Route Start Last Admin Trade Name Freq PRN Reason Stop Dose Admin Amlodipine Besylate 10 mg 07/29/17 12:30 08/09/17 09:33 Norvasc - PO 10 mg DAILY NARINDER Administration Atorvastatin Calcium 10 mg 07/29/17 22:00 08/08/17 21:39 Lipitor - PO 10 mg HS NARINDER Administration Clopidogrel Bisulfate 75 mg 07/30/17 10:00 08/09/17 09:33 Plavix - PO 75 mg DAILY NARINDER Administration Docusate Sodium 100 mg 08/02/17 14:38 08/02/17 16:54 Colace - PO 100 mg Q12H PRN Administration CONSTIPATION Enoxaparin Sodium 40 mg 07/30/17 10:00 08/09/17 09:33 Lovenox - SQ 40 mg DAILY NARINDER Administration Furosemide 40 mg 08/09/17 18:30 Lasix Injection - IVPUSH 08/09/17 18:31 ONCE ONE Polyethylene Glycol 17 gm 08/03/17 10:00 08/09/17 09:34 Miralax (For Daily Use) - PO 17 gm DAILY NARINDER Administration Sodium Chloride 1 gm 08/03/17 22:00 08/09/17 09:34 Sodium Chloride Tablet - PO 1 gm BID NARINDER Administration Impression 1. hyponatremia 2. Leukocytosis 3. HTN 4. HLD 5. PVD 6. GERD 7. anemia 8. pna vs influenza 9. pleural effusions Plan - cont with lasix - will give an additional dose - observe off of salt tabs - repeat labs in am - will need close follow up after discharge - discussed with medical team - urine sodium is not consistent with siadh Dr Lacey
[2017-08-09] MEDS: ATORVASTATIN CA 10 MG TABLET (FP) PO SCH (21:33)
[2017-08-10 08:10] LABS: ANION GAP 4 (8-16); BLOOD UREA NITROGEN 19 mg/dL (7-18); CALCIUM 7.9 mg/dL (8.5-10.1); CHLORIDE 95 mmol/L (98-107); CO2 31 mmol/L (21-32); GLUCOSE,RANDOM 83 mg/dL (74-106); POTASSIUM 4.6 mmol/L (3.5-5.1); SODIUM 130 mmol/L (136-145)
[2017-08-10 08:14] LABS: ALK PHOS 70 U/L (45-117); BILIRUBIN,TOTAL 0.5 mg/dL (0.2-1.0); CREATININE 0.6 mg/dL (0.7-1.3); SGOT/AST 21 U/L (15-37); SGPT/ALT 25 U/L (12-78); TOT PROT 4.7 g/dl (6.4-8.2)
[2017-08-10] MEDS: amLODIPine BESYLATE 10 MG TABLET (FP) PO SCH (10:28)
[2017-08-10] MEDS: CLOPIDOGREL BISULFATE 75 MG TABLET (FP) PO SCH (10:28)
[2017-08-10] MEDS: ENOXAPARIN NA (PORCINE) 40 MG/0.4 ML DISP.SYRIN SQ SCH (10:28)
[2017-08-10] MEDS: POLYETHYLENE GLYCOL 3350 119 GM BTL PO SCH (10:28)
--- NOTE | 2017-08-10 12:12 | PN ---
Progress Note, COUNTER HOP - Note Progress Note: Selected Entries 08/09/17 08/09/17 08/09/17 05:48 08:07 14:58 Breakfast Supper Temperature 98.5 F 98.2 F 98.5 F 08/09/17 08/09/17 08/10/17 18:00 22:00 05:49 Breakfast Supper 75% 75% Temperature 98.5 F 98.3 F 98.3 F 08/10/17 10:11 Breakfast 100% Supper Temperature Laboratory Tests 08/06/17 08/09/17 08/10/17 07:20 07:15 06:30 WBC 10.2 H 7.8 Sodium 130 L Pt is on a pureed diet. He can tolerate puree,however, he can likely tolerate an upgraded soft, easy to chew diet, as recommended. As per my last recommendations: Diet modification to soft, moist,easy to chew foods (No grilled chicken). with all meat chopped with gravy. RD f/u.
--- NOTE | 2017-08-10 13:34 | DS ---
Physical Exam: SUBJECTIVE: Patient seen and examined at bedside. Friend present. OBJECTIVE: Vital Signs Period Temp Pulse Resp BP Sys/Macias Pulse Ox Last 24 Hr 98.3 F-98.5 F 65-76 16-18 123-151/54-74 94 PHYSICAL EXAM GENERAL: The patient is awake, alert, and fully oriented, in no acute distress. HEAD: Normal with no signs of trauma. EYES: PERRL, extraocular movements intact, sclera anicteric, conjunctiva clear. ENT: Ears normal, nares patent, oropharynx clear without exudates, moist mucous membranes. NECK: Trachea midline, full range of motion, supple. LUNGS: Breath sounds equal, clear to auscultation bilaterally, no wheezes, no crackles, no accessory muscle use. HEART: Regular rate and rhythm, S1, S2 without murmur, rub or gallop. ABDOMEN: Soft, nontender, nondistended, normoactive bowel sounds, no guarding, no rebound, no hepatosplenomegaly, no masses. EXTREMITIES: 2+ pulses, warm, well-perfused, no edema. NEUROLOGICAL: Cranial nerves II through XII grossly intact. Normal speech, gait not observed. LABS Laboratory Results - last 24 hr 08/10/17 06:30 Sodium 130 L Potassium 4.6 Chloride 95 L Carbon Dioxide 31 Anion Gap 4 L BUN 19 H Creatinine 0.6 L Creat Clearance w eGFR > 60 Random Glucose 83 Calcium 7.9 L Total Bilirubin 0.5 AST 21 ALT 25 Alkaline Phosphatase 70 Total Protein 4.7 L Albumin 2.0 L HOSPITAL COURSE: Date of Admission:07/29/17 Date of Discharge: 08/10/17 This is an 82 year old male with PMHx of HTN, hyperlipidemia, anemia, CAD, who presented to the ED with shortness of breath, weakness, cough, decreased appetite x5 days. He was admitted to the hospital for severe hyponatremia Severe hyponatremia: --improved with administration of lasix and fluid restriction --salt tabs given but discontinued --Na 13-131 for past 48 hours --continue Lasix and fluid restriction on discharge; bmp q72 hours for at least one week to ensure stability Pleural effusions --2/ CXR with small pleural effusions --continued Lasix Respiratory illness --bacterial v. viral --flu swab negative; rapid strep negative --completed course of ceftriaxone and azithromycin --afebrile and no leukocytosis at time of discharge Coronary artery disease --continue amlodipine, Lipitor, Plavix Hypertension --BP stable --continued amlodipine Minutes to complete discharge: 35 Discharge Summary Reason For Visit: HYPONATREMIA Current Active Problems Anemia (Acute) CAD (coronary artery disease) (Acute) Decrease in appetite (Acute) HLD (hyperlipidemia) (Acute) HTN (hypertension) (Acute) Hyponatremia (Acute) Leukocytosis (Acute) SOB (shortness of breath) (Acute) Weakness (Acute) Condition: Improved - Instructions Diet, Activity, Other Instructions: Patient needs to have his sodium levels checked every 72 hours until stabilized. His sodium level at the time of admission was 121, it is 130 today and has been stable for the past 48 hours. Please maintain the patient on Lasxix 40mg daily, and potassium 10meq daily. The patient should also be educated about fluid restriction. He should be restricted to 1-1.5L per 24 hours. Patient should return to the emergency department for any new or worsening symptoms. Referrals: Yousif Mckeon [Primary Care Provider] - Disposition: VNS/HOME HEALTH CARE - Home Medications Comprehensive Discharge Medication List: Ambulatory Orders Amlodipine Besylate [Norvasc -] 10 mg PO DAILY #0 tablet 11/19/11 Aspirin [Acetyl Salicylic Acid] 81 mg PO DAILY #0 tab.chew 11/19/11 Clopidogrel Bisulfate [Plavix -] 75 mg PO DAILY #0 tablet 11/19/11 Ferrous Sulfate [Feosol] 325 mg PO DAILY #0 ud 11/19/11 Folic Acid 1 mg PO DAILY #0 tablet 11/19/11 Multivitamins [Multivit (RH Formulary)] 1 each PO DAILY #0 tab 11/19/11 Atorvastatin Ca [Lipitor] 10 mg PO HS 07/29/17 Cetirizine HCl 10 mg PO 07/29/17 Docusate Sodium [Colace -] 200 mg PO DAILY 07/29/17 Famotidine [Pepcid] 20 mg PO DAILY 07/29/17 Furosemide [Lasix] 40 mg PO DAILY #30 tablet 08/10/17 Potassium Chloride [K-Dur -] 10 meq PO DAILY #30 tablet.er 08/10/17 This patient is new to me today: Yes Date on this admission: 08/10/17 Emergency Visit: Yes ED Registration Date: 07/29/17 Care time: The patient presented to the Emergency Department on the above date and was hospitalized for further evaluation of their emergent condition. Critical Care patient: No - Discharge Referral Referred to [facility] No
[2017-08-10 13:37] VITALS: BP 145/52; PULSE 68; TEMP 98.2
--- NOTE | 2017-08-10 15:06 | PN ---
Progress Note, Physician History of Present Illness: Pt seen and examined at bedside. He is awake and alert. He feels that his breathing is improved. He feels lower extremity edema is starting to improve. - Current Medication List Current Medications: Active Medications Amlodipine Besylate (Norvasc -) 10 mg PO DAILY [facility] Last Admin: 08/10/17 10:28 Dose: 10 mg Atorvastatin Calcium (Lipitor -) 10 mg PO HS [facility] Last Admin: 08/09/17 21:33 Dose: 10 mg Clopidogrel Bisulfate (Plavix -) 75 mg PO DAILY [facility] Last Admin: 08/10/17 10:28 Dose: 75 mg Docusate Sodium (Colace -) 100 mg PO Q12H PRN PRN Reason: CONSTIPATION Last Admin: 08/02/17 16:54 Dose: 100 mg Enoxaparin Sodium (Lovenox -) 40 mg SQ DAILY [facility] Last Admin: 08/10/17 10:28 Dose: 40 mg Polyethylene Glycol (Miralax (For Daily Use) -) 17 gm PO DAILY [facility] Last Admin: 08/10/17 10:28 Dose: 17 gm - Objective Vital Signs: Vital Signs Temperature 98.2 F 08/10/17 13:35 Pulse Rate 68 08/10/17 13:35 Respiratory Rate 18 08/10/17 10:00 Blood Pressure 145/52 08/10/17 13:35 O2 Sat by Pulse Oximetry (%) 94 L 08/10/17 09:00 Constitutional: Yes: Calm Eyes: Yes: Conjunctiva Clear HENT: Yes: Atraumatic Neck: Yes: Supple Cardiovascular: Yes: S1, S2 Respiratory: Yes: CTA Bilaterally Gastrointestinal: Yes: Normal Bowel Sounds, Soft Genitourinary: Yes: WNL Musculoskeletal: Yes: WNL Edema: Yes Edema: LLE: 1+, RLE: 1+ Neurological: Yes: Oriented Psychiatric: Yes: Oriented Labs: CBC, BMP 08/09/17 07:15 08/10/17 06:30 INR, PTT INR 0.93 (0.82-1.09) 07/29/17 10:25 Problem List - Problems (1) CAD (coronary artery disease) Code(s): I25.10 - ATHSCL HEART DISEASE OF [place] CORONARY ARTERY W/O ANG PCTRS (2) Decrease in appetite Code(s): R63.0 - ANOREXIA (3) HLD (hyperlipidemia) Code(s): E78.5 - HYPERLIPIDEMIA, UNSPECIFIED (4) HTN (hypertension) Code(s): I10 - ESSENTIAL (PRIMARY) HYPERTENSION (5) Hyponatremia Code(s): E87.1 - HYPO-OSMOLALITY AND HYPONATREMIA Assessment/Plan Current Medications Generic Name Dose Route Start Last Admin Trade Name Freq PRN Reason Stop Dose Admin Amlodipine Besylate 10 mg 07/29/17 12:30 08/10/17 10:28 Norvasc - PO 10 mg DAILY NARINDER Administration Atorvastatin Calcium 10 mg 07/29/17 22:00 08/09/17 21:33 Lipitor - PO 10 mg HS NARINDER Administration Clopidogrel Bisulfate 75 mg 07/30/17 10:00 08/10/17 10:28 Plavix - PO 75 mg DAILY NARINDER Administration Docusate Sodium 100 mg 08/02/17 14:38 08/02/17 16:54 Colace - PO 100 mg Q12H PRN Administration CONSTIPATION Enoxaparin Sodium 40 mg 07/30/17 10:00 08/10/17 10:28 Lovenox - SQ 40 mg DAILY NARINDER Administration Polyethylene Glycol 17 gm 08/03/17 10:00 08/10/17 10:28 Miralax (For Daily Use) - PO 17 gm DAILY NARINDER Administration Impression 1. hyponatremia 2. Leukocytosis 3. HTN 4. HLD 5. PVD 6. GERD 7. anemia 8. pna vs influenza 9. pleural effusions Plan - continue with lasix - will need to monitor bloodwork as oupt - can see pt next week in the office - monitor volume status - will need close follow up after discharge - discussed with medical team - urine sodium is not consistent with siadh Dr Lacey
[2017-08-10] MEDS ORDERED: FUROSEMIDE 40 MG TABLET (FP) PO SCH (15:45)
== END 2017-08-10 15:50 | disposition home health service (06) | DRG 640 ==
LOC: JER 09:16 → JERBED 12:18 → OBSVTOIN 12:45 → J6S 14:30
PROVIDERS: ADMIT Internal Medicine; ATTEND Nurse Practitioner Acute Care
DX: E87.1 Hypo-osmolality and hyponatremia (principal); J18.9 Pneumonia, unspecified organism; J90 Pleural effusion, not elsewhere classified; I10 Essential (primary) hypertension; D72.829 Elevated white blood cell count, unspecified; R53.1 Weakness; I25.10 Atherosclerotic heart disease of native coronary artery without angina pectoris; E86.0 Dehydration; E78.5 Hyperlipidemia, unspecified; K21.9 Gastro-esophageal reflux disease without esophagitis; R63.0 Anorexia; K59.00 Constipation, unspecified; D47.3 Essential (hemorrhagic) thrombocythemia; F17.210 Nicotine dependence, cigarettes, uncomplicated; I73.9 Peripheral vascular disease, unspecified; D50.9 Iron deficiency anemia, unspecified
CPT/HCPCS: 36415; 71045-TC; 74230-TC-FY; 76700-TC; 80048; 80053; 81003; 81015; 82040; 82436; 82533; 82570; 82803; 83605; 83735; 83930; 83935; 84100; 84133; 84300; 84443; 84484; 85025; 85027; 85610; 85730; 86850; 86900; 86901; 87040; 87070; 87430; 87804; 92611-GN; 93005; 93010; 97116-GP; 97161-GP; 99284-25; G0378

== ENCOUNTER 2019-02-05 09:21 | Inpatient (IN) | payer OTHER | END 2019-02-08 17:47 | LOC: JER 09:21 → J4W 02-06 17:54 → JERBED 15:09 ==